=== PATIENT | female | born 1990 | race Caucasian/White ===

== ENCOUNTER 2018-04-14 13:24 | Emergency (ER) | payer OTHER, MEDICAID, SELFPAY ==
[2018-04-14 13:30] VITALS: BP 118/78; PULSE 63; RESP 20; TEMP 36.7; O2SAT 99
[2018-04-14] MEDS: SODIUM CHLORIDE 0.9% 1,000 ML 1000 ML IV ×2 (14:17→17:11)
[2018-04-14 14:55] LABS: Bacteria Urine None Seen; RBC Urine None Seen (0-5/HPF)
[2018-04-14 14:59] LABS: Hematocrit 39.3 % (36-46); Hemoglobin 13.5 g/dL (12.0-16.0); Mean Corpuscular HGB Conc 34.3 % (30-36); Mean Corpuscular Hemoglobin 29.4 PG (26-34); Mean Corpuscular Volume 85.7 fL (80-100); Platelet Count 317 X10^3/uL (150-400); Red Blood Cell Count 4.58 X10^6/uL (4.0-5.2); White Blood Cell Count 11.9 X10^3/uL (4.5-11.0)
[2018-04-14 15:04] LABS: Alanine Aminotransferase 55 IU/L (9-52); Albumin 4.3 g/dL (3.5-5.0); Albumin Globulin Ratio 1.3 (1.0-2.8); Alkaline Phosphatase 45 U/L (38-126); Aspartate Aminotransferase 48 IU/L (14-36); BUN Creatinine Ratio 15.7 (6-22); Bilirubin Total 0.8 mg/dL (0.2-1.3); Blood Urea Nitrogen 11 mg/dL (7-17); Calcium 8.9 mg/dL (8.4-10.2); Carbon Dioxide 24 mmol/L (22-32); Chloride 99 mmol/L (98-107); Estimated Glomerular Filt Rate > 60.0 mL/min (>60); Globulin 3.4 g/dL (1.7-4.1); Glucose 102 mg/dL (70-100); HEMOLYSIS < 15 (0-50); Magnesium 2.2 mg/dL (1.6-2.3); Potassium 3.1 mmol/L (3.4-5.1); Sodium 137 mmol/L (137-145); Total Protein 7.7 g/dL (6.3-8.2)
[2018-04-14 15:14] LABS: Neutrophils Absolute Manual 8330 /uL (3000-5900); RBC Morphology Normal Morphology; Total Cells Counted 100
[2018-04-14 15:15] LABS: Squamous Epithelial Cell Urine 1-5 /HPF; WBC Urine 1-5/HPF (0-5/HPF)
[2018-04-14 15:16] LABS: Amorphous Sediment Urine 2+; Culture Indicated Urine Cult Not Indicated
--- NOTE | 2018-04-14 15:26 | DI.US.S_ITS ---
PROCEDURE: US OB <= 14 WEEKS FETUS INDICATIONS: n/v back pain OUTSIDE/PRIOR DATING DATA: Last menstrual period (LMP): Unknown. LMP-based estimated date of delivery (LAKSHMI): Not available. First dating scan (date and location): 04/07/18, Dr. Borrego. Estimated date of delivery (LAKSHMI) from first dating scan: 11/10/18. TECHNIQUE: Real-time scanning was performed of the fetus and maternal pelvic organs, with image documentation. COMPARISON: [facility], , US OB <= 14 WEEKS FETUS, 04/07/2018, 13:51. FINDINGS: Embryo: There is a single live intrauterine gestation with a crown rump length of 3.5 cm for a gestational age of 10 weeks, 3 days. The heart rate is 175 bpm. This finding is concordant with the dates by initial ultrasound dated 04/07/18. Measurement variability in dating: +/- 4 weeks by LMP, +/- 7 days by mean sac diameter (use before 6 weeks gestation if crown-rump length not able to be measured), +/- 5 days by crown-rump length (up to 8 weeks 6 days gestation), +/- 7 days by crown-rump length (up to 13 weeks 6 days gestation). Maternal organs: Ovaries have a normal appearance. Limited images through the kidneys demonstrate no hydronephrosis. IMPRESSION: 1. Single live intrauterine gestation with a gestational age of 10 weeks, 3 days which is concordant with dates by initial scan. Dictated by: Sharri Ragland M.D. on 04/14/2018 at 17:43 Approved by: Sharri Ragland M.D. on 04/14/2018 at 17:45
[2018-04-14 15:41] VITALS: BP 121/81; PULSE 56; RESP 14; O2SAT 100
[2018-04-14 15:45] LABS: HCG Quantitative /Beta subunit 165450 mIU/mL
[2018-04-14] MEDS: POTASSIUM CHLORIDE 20 MEQ in SODIUM CHLORIDE 0.9% 250 ML 130 ML IV (16:04)
[2018-04-14] MEDS: ONDANSETRON 4 MG/2 ML INJ IV (16:04)
--- NOTE | 2018-04-14 17:00 | ED.NAVMDI ---
HPI - Nausea/Vomiting/Diarrhea <GEORGINA Sales - Last Filed: 04/14/18 23:18> General Chief complaint: Nausea/Vomiting/Diarrhea Stated complaint: THROWING UP SINCE FRIDAY,10 WEEKS Time Seen by Provider: 04/14/18 14:40 Source: patient Mode of arrival: ambulatory Limitations: no limitations History of Present Illness HPI Narrative: Patient is a 27-year-old female who is 10 weeks presents with profuse nausea and vomiting. She was seen at [facility] for the same thing on sending, was found to have low potassium. She states that her has been going well, but her nausea and vomiting is worse with this than previous. She denies any abdominal pain, fevers diarrhea or constipation. She states she tried both is [place] and Reglan at home, but that made her sick. She denies any chest pain or shortness of breath. She denies any dysuria urgency or frequency. She denies any vaginal bleeding or discharge. Related Data Home Medications Medication Instructions Recorded Confirmed PNV cmb#95-ferrous fumarate-FA 1 tab PO DAILY 04/14/18 04/14/18 [] metoclopramide HCl 1 tab PO PRN PRN 04/14/18 04/14/18 ondansetron 1 tab PO TID PRN 04/14/18 04/14/18 Previous Rx's Medication Instructions Recorded ondansetron HCl 4 mg PO TID-QID PRN #20 tab 04/14/18 Allergies Allergy/AdvReac Type Severity Reaction Status Date / Time No Known Drug Allergies Allergy Unverified 04/06/18 19:13 Review of Systems <GEORGINA Sales - Last Filed: 04/14/18 23:18> Review of Systems GENERAL: Denies chills, fatigue, malaise, fever, sweats. HEENT: Denies sinus pain, ear pain, sore throat, difficulty swallowing, dizziness. RESPIRATORY: Denies dyspnea, cough, wheezing, hemoptysis, sputum. CARDIOVASCULAR: Denies chest pain, palpitations, orthopnea, edema, GASTROINTESTINAL: See HPI : Denies dysuria, frequency, incontinence, hematuria, urinary retention. MUSCULOSKELETAL: denies weakness, joint pain, or bony pain SKIN: Denies rash, skin lesions, or other NEUROLOGIC: Denies weakness, headache, numbness, change in speech, confusion, seizures, incoordination. PSYCHIATRIC: No concerning psychosocial issues. 12 point review of systems is negative except for those stated above Exam <GEORGINA Sales - Last Filed: 04/14/18 23:18> Narrative Exam Narrative: GENERAL: This is a well-nourished, well-developed patient, lying on stretcher HEAD: Atraumatic. Normocephalic. No temporal or scalp tenderness. EYES: Pupils equal round and reactive. Extraocular motions intact. No scleral icterus. No injection or drainage. ENT: Nose without bleeding, purulent drainage or septal hematoma. Throat without erythema, tonsillar hypertrophy or exudate. Uvula midline. Airway patent. NECK: Trachea midline. No JVD or lymphadenopathy. Supple, nontender, no meningeal signs. CARDIOVASCULAR: Regular rate and rhythm without murmurs, gallops, or rubs. RESPIRATORY: Clear to auscultation. Breath sounds equal bilaterally. No wheezes, rales, or rhonchi. GASTROINTESTINAL: Abdomen soft, non-tender, nondistended. No hepato-splenomegaly, or palpable masses. No guarding. no pulsatile mass. Active bowel sounds all 4 quadrants. EXTREMITIES: No clubbing, cyanosis, or edema. No joint tenderness, effusion, or edema noted. BACK: Nontender without deformity or crepitance. No flank tenderness. NEURO: AOx3. SKIN: No rash or erythema. Initial Vital Signs Initial Vital Signs: Vital Signs Temperature 98.0 F 04/14/18 13:30 Pulse Rate 63 04/14/18 13:30 Respiratory Rate 20 04/14/18 13:30 Blood Pressure 118/78 04/14/18 13:30 Pulse Oximetry 99 04/14/18 13:30 <Lyndsay Contreras DO - Last Filed: 04/15/18 04:22> Initial Vital Signs Initial Vital Signs: Vital Signs Temperature 98.0 F 04/14/18 13:30 Pulse Rate 63 04/14/18 13:30 Respiratory Rate 20 04/14/18 13:30 Blood Pressure 118/78 04/14/18 13:30 Pulse Oximetry 99 04/14/18 13:30 Course <GEORGINA Sales - Last Filed: 04/14/18 23:18> Orders Ordered: Discontinued Medications Sodium Chloride (Normal Saline 0.9%) 1,000 mls @ 1,000 mls/hr IV BOLUS ONE Stop: 04/14/18 15:13 Last Infusion: 04/14/18 16:05 Dose: 100 mls/hr Admin: 04/14/18 14:17 Dose: 1,000 mls/hr Potassium Chloride 20 meq/ (Sodium Chloride) 260 mls @ 130 mls/hr IV NOW ONE Stop: 04/14/18 17:38 Last Admin: 04/14/18 16:04 Dose: 130 mls/hr Sodium Chloride (Normal Saline 0.9%) 1,000 mls @ 1,000 mls/hr IV BOLUS ONE Stop: 04/14/18 18:02 Last Admin: 04/14/18 17:11 Dose: 1,000 mls/hr Metoclopramide HCl (Reglan) 10 mg PO NOW ONE Stop: 04/14/18 16:58 Last Admin: 04/14/18 19:02 Dose: Not Given Metoclopramide HCl (Reglan) 10 mg IV NOW ONE Stop: 04/14/18 17:14 Last Admin: 04/14/18 17:17 Dose: 10 mg Ondansetron HCl (Zofran) 4 mg IV NOW ONE Stop: 04/14/18 15:40 Last Admin: 04/14/18 16:04 Dose: 4 mg Vital Signs - 8 hr 04/14/18 15:41 04/14/18 19:39 Pulse Rate 56 L 67 Respiratory Rate 14 16 Blood Pressure [Right Arm] 121/81 101/67 Pulse Oximetry 100 100 <Lyndsay Contreras DO - Last Filed: 04/15/18 04:22> Orders Ordered: Discontinued Medications Sodium Chloride (Normal Saline 0.9%) 1,000 mls @ 1,000 mls/hr IV BOLUS ONE Stop: 04/14/18 15:13 Last Infusion: 04/14/18 16:05 Dose: 100 mls/hr Admin: 04/14/18 14:17 Dose: 1,000 mls/hr Potassium Chloride 20 meq/ (Sodium Chloride) 260 mls @ 130 mls/hr IV NOW ONE Stop: 04/14/18 17:38 Last Admin: 04/14/18 16:04 Dose: 130 mls/hr Sodium Chloride (Normal Saline 0.9%) 1,000 mls @ 1,000 mls/hr IV BOLUS ONE Stop: 04/14/18 18:02 Last Admin: 04/14/18 17:11 Dose: 1,000 mls/hr Metoclopramide HCl (Reglan) 10 mg PO NOW ONE Stop: 04/14/18 16:58 Last Admin: 04/14/18 19:02 Dose: Not Given Metoclopramide HCl (Reglan) 10 mg IV NOW ONE Stop: 04/14/18 17:14 Last Admin: 04/14/18 17:17 Dose: 10 mg Ondansetron HCl (Zofran) 4 mg IV NOW ONE Stop: 04/14/18 15:40 Last Admin: 04/14/18 16:04 Dose: 4 mg Vital Signs - 8 hr 04/14/18 15:41 04/14/18 19:39 Pulse Rate 56 L 67 Respiratory Rate 14 16 Blood Pressure [Right Arm] 121/81 101/67 Pulse Oximetry 100 100 MDM - Nausea/Vomiting/Diarrhea <CHASIDY Sales- - Last Filed: 04/14/18 23:18> Lab Data Result diagrams: 04/14/18 14:05 04/14/18 14:05 Lab Results 04/14/18 04/14/18 04/14/18 Range/Units 14:05 14:05 14:05 WBC 11.9 H (4.5-11.0) X10^3/uL RBC 4.58 (4.0-5.2) X10^6/uL Hgb 13.5 (12.0-16.0) g/dL Hct 39.3 (36-46) % MCV 85.7 (80-100) fL MCH 29.4 (26-34) PG MCHC 34.3 (30-36) % RDW 13.0 (11.6-14.8) % Plt Count 317 (150-400) X10^3/uL Total Counted 100 Seg Neutrophils % 70.0 (38-70) % Lymphocytes % (Manual) 19.0 L (25-45) % Atypical Lymphs % 6.0 H ( - 0) % Monocytes % (Manual) 5.0 (2-11) % Neutrophils # (Manual) 8330 H (6997-7513) /uL RBC Morphology Normal morphology Sodium 137 (137-145) mmol/L Potassium 3.1 L (3.4-5.1) mmol/L Chloride 99 (98-107) mmol/L Carbon Dioxide 24 (22-32) mmol/L BUN 11 (7-17) mg/dL Creatinine 0.70 (0.52-1.04) mg/dL Estimated GFR > 60.0 (>60) mL/min BUN/Creatinine Ratio 15.7 (6-22) Glucose 102 H (70-100) mg/dL Calcium 8.9 (8.4-10.2) mg/dL Magnesium 2.2 (1.6-2.3) mg/dL Total Bilirubin 0.8 (0.2-1.3) mg/dL AST 48 H (14-36) IU/L ALT 55 H (9-52) IU/L Alkaline Phosphatase 45 (38-126) U/L Total Protein 7.7 (6.3-8.2) g/dL Albumin 4.3 (3.5-5.0) g/dL Globulin 3.4 (1.7-4.1) g/dL Albumin/Globulin Ratio 1.3 (1.0-2.8) HCG, Quant 627782 mIU/mL Urine RBC None seen (0-5/HPF) Urine WBC 1-5/hpf (0-5/HPF) Ur Squamous Epith Cells 1-5 /hpf Amorphous Sediment 2+ Urine Bacteria None seen (None) Ur Culture Indicated? Cult not indicated Micro UA Comment Not Reportable Influenza A & B (PCR) (Negative) 04/14/18 Range/Units 17:00 WBC (4.5-11.0) X10^3/uL RBC (4.0-5.2) X10^6/uL Hgb (12.0-16.0) g/dL Hct (36-46) % MCV (80-100) fL MCH (26-34) PG MCHC (30-36) % RDW (11.6-14.8) % Plt Count (150-400) X10^3/uL Total Counted Seg Neutrophils % (38-70) % Lymphocytes % (Manual) (25-45) % Atypical Lymphs % ( - 0) % Monocytes % (Manual) (2-11) % Neutrophils # (Manual) (8023-9710) /uL RBC Morphology Sodium (137-145) mmol/L Potassium (3.4-5.1) mmol/L Chloride (98-107) mmol/L Carbon Dioxide (22-32) mmol/L BUN (7-17) mg/dL Creatinine (0.52-1.04) mg/dL Estimated GFR (>60) mL/min BUN/Creatinine Ratio (6-22) Glucose (70-100) mg/dL Calcium (8.4-10.2) mg/dL Magnesium (1.6-2.3) mg/dL Total Bilirubin (0.2-1.3) mg/dL AST (14-36) IU/L ALT (9-52) IU/L Alkaline Phosphatase (38-126) U/L Total Protein (6.3-8.2) g/dL Albumin (3.5-5.0) g/dL Globulin (1.7-4.1) g/dL Albumin/Globulin Ratio (1.0-2.8) HCG, Quant mIU/mL Urine RBC (0-5/HPF) Urine WBC (0-5/HPF) Ur Squamous Epith Cells Amorphous Sediment Urine Bacteria (None) Ur Culture Indicated? Micro UA Comment Influenza A & B (PCR) Negative (Negative) Point of Care Testing Test Results Positive Urine Dip Bedside Urine Glucose Negative Bedside Urine Bilirubin - Negative Bedside Urine Ketone +++ 80 Urine Specific [place] 1.015 Bedside Urine Occult Blood - Negative Bedside Urine pH 7.0 Bedside Urine Protein + 30 Bedside Urine Urobilinogen +/- 1mg Bedside Urine Nitrite - Negative Bedside Urine Leukocytes - Negative Esterase Imaging Data US - abdomen: Radiologist's impression: 7 Diagnostics DATE TYPE STATUS AUTHOR 04/14/18 15:26 Sharri Ragland HerndonMeghann 27, F1990 DEP ER, ED - Main ED: R12 61.235kg Nausea/Vomiting/Diarrhea Search Chart No Known Drug Allergies ONSET 09/18/11 Today 19:[address] [address] Ultrasound Report Signed Patient: Meghann Herndon MMR#: [id number] : 1990Acct:[id number] Age/Sex: 27 / FDate of Service: 04/14/18 Loc: ED Accession Number: [id number] Procedure: US OB <= 14 weeks fetus Ordering Provider: Becki Underwood [employer]UN[employer] OPERATOR [employer] PROCEDURE: US OB <= 14 WEEKS FETUS INDICATIONS: n/v back pain OUTSIDE/PRIOR DATING DATA: Last menstrual period (LMP): Unknown. LMP-based estimated date of delivery (LAKSHMI): Not available. First dating scan (date and location): 04/07/18, Dr. Borrego. Estimated date of delivery (LAKSHMI) from first dating scan: 11/10/18. TECHNIQUE: Real-time scanning was performed of the fetus and maternal pelvic organs, with image documentation. COMPARISON: [facility], US, US OB <= 14 WEEKS FETUS, 04/07/2018, 13:51. FINDINGS: Embryo: There is a single live intrauterine gestation with a crown rump length of 3.5 cm for a gestational age of 10 weeks, 3 days. The heart rate is 175 bpm. This finding is concordant with the dates by initial ultrasound dated 04/07/18. Measurement variability in dating: +/- 4 weeks by LMP, +/- 7 days by mean sac diameter (use before 6 weeks gestation if crown-rump length not able to be measured), +/- 5 days by crown-rump length (up to 8 weeks 6 days gestation), +/- 7 days by crown-rump length (up to 13 weeks 6 days gestation). Maternal organs: Ovaries have a normal appearance. Limited images through the kidneys demonstrate no hydronephrosis. IMPRESSION: 1. Single live intrauterine gestation with a gestational age of 10 weeks, 3 days which is concordant with dates by initial scan. Dictated by: Sharri Ragland M.D. on 04/14/2018 at 17:43 Approved by: Sharri Ragland M.D. on 04/14/2018 at 17:45 MDM Narrative Medical decision making narrative: The patient is a 27-year-old female who presents with nausea and vomiting. She was seen at [facility] for the same thing 2 days ago. The patient was treated with normal saline, Zofran and Reglan in the emergency department. She was able to pass a p.o. trial Prior to discharge. Her potassium was found to be 3.1 so she was replaced with 20 mEq IV. the patient is hemodynamically stable, afebrile nontoxic throughout her stay in the emergency department. I discussed at length follow up with her primary care provider for potassium recheck as well as management of her nausea and vomiting throughout her . Ultrasound revealed no acute findings and urine was negative for infection. I discussed at length with patient return precautions and she had no questions or concerns upon discharge. <Lyndsay Ben, DO - Last Filed: 04/15/18 04:22> Lab Data Lab Results 04/14/18 04/14/18 04/14/18 Range/Units 14:05 14:05 14:05 WBC 11.9 H (4.5-11.0) X10^3/uL RBC 4.58 (4.0-5.2) X10^6/uL Hgb 13.5 (12.0-16.0) g/dL Hct 39.3 (36-46) % MCV 85.7 (80-100) fL MCH 29.4 (26-34) PG MCHC 34.3 (30-36) % RDW 13.0 (11.6-14.8) % Plt Count 317 (150-400) X10^3/uL Total Counted 100 Seg Neutrophils % 70.0 (38-70) % Lymphocytes % (Manual) 19.0 L (25-45) % Atypical Lymphs % 6.0 H ( - 0) % Monocytes % (Manual) 5.0 (2-11) % Neutrophils # (Manual) 8330 H (2597-2345) /uL RBC Morphology Normal morphology Sodium 137 (137-145) mmol/L Potassium 3.1 L (3.4-5.1) mmol/L Chloride 99 (98-107) mmol/L Carbon Dioxide 24 (22-32) mmol/L BUN 11 (7-17) mg/dL Creatinine 0.70 (0.52-1.04) mg/dL Estimated GFR > 60.0 (>60) mL/min BUN/Creatinine Ratio 15.7 (6-22) Glucose 102 H (70-100) mg/dL Calcium 8.9 (8.4-10.2) mg/dL Magnesium 2.2 (1.6-2.3) mg/dL Total Bilirubin 0.8 (0.2-1.3) mg/dL AST 48 H (14-36) IU/L ALT 55 H (9-52) IU/L Alkaline Phosphatase 45 (38-126) U/L Total Protein 7.7 (6.3-8.2) g/dL Albumin 4.3 (3.5-5.0) g/dL Globulin 3.4 (1.7-4.1) g/dL Albumin/Globulin Ratio 1.3 (1.0-2.8) HCG, Quant 627721 mIU/mL Urine RBC None seen (0-5/HPF) Urine WBC 1-5/hpf (0-5/HPF) Ur Squamous Epith Cells 1-5 /hpf Amorphous Sediment 2+ Urine Bacteria None seen (None) Ur Culture Indicated? Cult not indicated Micro UA Comment Not Reportable Influenza A & B (PCR) (Negative) 04/14/18 Range/Units 17:00 WBC (4.5-11.0) X10^3/uL RBC (4.0-5.2) X10^6/uL Hgb (12.0-16.0) g/dL Hct (36-46) % MCV (80-100) fL MCH (26-34) PG MCHC (30-36) % RDW (11.6-14.8) % Plt Count (150-400) X10^3/uL Total Counted Seg Neutrophils % (38-70) % Lymphocytes % (Manual) (25-45) % Atypical Lymphs % ( - 0) % Monocytes % (Manual) (2-11) % Neutrophils # (Manual) (3950-7921) /uL RBC Morphology Sodium (137-145) mmol/L Potassium (3.4-5.1) mmol/L Chloride (98-107) mmol/L Carbon Dioxide (22-32) mmol/L BUN (7-17) mg/dL Creatinine (0.52-1.04) mg/dL Estimated GFR (>60) mL/min BUN/Creatinine Ratio (6-22) Glucose (70-100) mg/dL Calcium (8.4-10.2) mg/dL Magnesium (1.6-2.3) mg/dL Total Bilirubin (0.2-1.3) mg/dL AST (14-36) IU/L ALT (9-52) IU/L Alkaline Phosphatase (38-126) U/L Total Protein (6.3-8.2) g/dL Albumin (3.5-5.0) g/dL Globulin (1.7-4.1) g/dL Albumin/Globulin Ratio (1.0-2.8) HCG, Quant mIU/mL Urine RBC (0-5/HPF) Urine WBC (0-5/HPF) Ur Squamous Epith Cells Amorphous Sediment Urine Bacteria (None) Ur Culture Indicated? Micro UA Comment Influenza A & B (PCR) Negative (Negative) Point of Care Testing Test Results Positive Urine Dip Bedside Urine Glucose Negative Bedside Urine Bilirubin - Negative Bedside Urine Ketone +++ 80 Urine Specific [place] 1.015 Bedside Urine Occult Blood - Negative Bedside Urine pH 7.0 Bedside Urine Protein + 30 Bedside Urine Urobilinogen +/- 1mg Bedside Urine Nitrite - Negative Bedside Urine Leukocytes - Negative Esterase Discharge Plan Departure Patient Disposition: Home Clinical Impression: Nausea and vomiting during , Acute hypokalemia Discharge Date/Time: 04/14/18 19:44 Interventions: ED Discharge Assessment Last Done: 04/14/18 19:43 Instructions: Nausea of (Alternative Therapy), Support (Alternative Therapy), DI for Hyperemesis Gravidarum, DI for Nausea -- Adult, DI for Vomiting -- Adult Activity Restrictions/Additional Instructions: Please follow-up with your primary care provider regarding her nausea and vomiting during . Please call them tomorrow. Your potassium was slightly low today, so we gave you some potassium replacement. Please continue to try the medication prescriptions that you have for nausea. I am giving a prescription of Zofran tablets rather than the dissolvable ones as those made you nauseous. Come back to the emergency department if you have any chest pain, shortness of breath, worried about passing out or unable to keep down fluids or ice. Prescriptions: New ondansetron HCl 4 mg tablet 4 mg PO TID-QID PRN (Reason: nausea and vomiting) Qty: 20 RF: 0 No Action ondansetron 4 mg tablet,disintegrating 1 tab PO TID PRN (Reason: Nausea) RF: 0 metoclopramide HCl 10 mg tablet 1 tab PO PRN PRN (Reason: Nausea) RF: 0 PNV cmb#95-ferrous fumarate-FA [] 28 mg iron- 800 mcg Tablet 1 tab PO DAILY RF: 0 Referrals: Philipp Borrego MD [Primary Care Provider] - <Lyndsay Contreras DO - Last Filed: 04/15/18 04:22> Cosign ED Attending Cosignature Attestation: I was immediately available in the department for consultation. Documentation has been reviewed. I agree with assessment and plan.
[2018-04-14] MEDS: METOCLOPRAMIDE 10 MG/2 ML INJ IV (17:17)
[2018-04-14 17:56] LABS: Influenza A and B by PCR Rapid Negative (Negative)
--- NOTE | 2018-04-14 19:20 | ED_ITS ---
HPI - Nausea/Vomiting/Diarrhea <GEORGINA Sales - Last Filed: 04/14/18 23:18> General Chief complaint: Nausea/Vomiting/Diarrhea Stated complaint: THROWING UP SINCE FRIDAY,10 WEEKS Time Seen by Provider: 04/14/18 14:40 Source: patient Mode of arrival: ambulatory Limitations: no limitations History of Present Illness HPI Narrative: Patient is a 27-year-old female who is 10 weeks presents with profuse nausea and vomiting. She was seen at [facility] for the same thing on sending, was found to have low potassium. She states that her has been going well, but her nausea and vomiting is worse with this than previous. She denies any abdominal pain, fevers diarrhea or constipation. She states she tried both is [place] and Reglan at home, but that made her sick. She denies any chest pain or shortness of breath. She denies any dysuria urgency or frequency. She denies any vaginal bleeding or discharge. Related Data Home Medications Medication Instructions Recorded Confirmed PNV cmb#95-ferrous fumarate-FA 1 tab PO DAILY 04/14/18 04/14/18 [] metoclopramide HCl 1 tab PO PRN PRN 04/14/18 04/14/18 ondansetron 1 tab PO TID PRN 04/14/18 04/14/18 Previous Rx's Medication Instructions Recorded ondansetron HCl 4 mg PO TID-QID PRN #20 tab 04/14/18 Allergies Allergy/AdvReac Type Severity Reaction Status Date / Time No Known Drug Allergies Allergy Unverified 04/06/18 19:13 Review of Systems <GEORGINA Sales - Last Filed: 04/14/18 23:18> Review of Systems GENERAL: Denies chills, fatigue, malaise, fever, sweats. HEENT: Denies sinus pain, ear pain, sore throat, difficulty swallowing, dizziness. RESPIRATORY: Denies dyspnea, cough, wheezing, hemoptysis, sputum. CARDIOVASCULAR: Denies chest pain, palpitations, orthopnea, edema, GASTROINTESTINAL: See HPI : Denies dysuria, frequency, incontinence, hematuria, urinary retention. MUSCULOSKELETAL: denies weakness, joint pain, or bony pain SKIN: Denies rash, skin lesions, or other NEUROLOGIC: Denies weakness, headache, numbness, change in speech, confusion, seizures, incoordination. PSYCHIATRIC: No concerning psychosocial issues. 12 point review of systems is negative except for those stated above Exam <GEORGINA Sales - Last Filed: 04/14/18 23:18> Narrative Exam Narrative: GENERAL: This is a well-nourished, well-developed patient, lying on stretcher HEAD: Atraumatic. Normocephalic. No temporal or scalp tenderness. EYES: Pupils equal round and reactive. Extraocular motions intact. No scleral icterus. No injection or drainage. ENT: Nose without bleeding, purulent drainage or septal hematoma. Throat without erythema, tonsillar hypertrophy or exudate. Uvula midline. Airway patent. NECK: Trachea midline. No JVD or lymphadenopathy. Supple, nontender, no meningeal signs. CARDIOVASCULAR: Regular rate and rhythm without murmurs, gallops, or rubs. RESPIRATORY: Clear to auscultation. Breath sounds equal bilaterally. No wheezes , rales, or rhonchi. GASTROINTESTINAL: Abdomen soft, non-tender, nondistended. No hepato-splenomegaly , or palpable masses. No guarding. no pulsatile mass. Active bowel sounds all 4 quadrants. EXTREMITIES: No clubbing, cyanosis, or edema. No joint tenderness, effusion, or edema noted. BACK: Nontender without deformity or crepitance. No flank tenderness. NEURO: AOx3. SKIN: No rash or erythema. Initial Vital Signs Initial Vital Signs: Vital Signs Temperature 98.0 F 04/14/18 13:30 Pulse Rate 63 04/14/18 13:30 Respiratory Rate 20 04/14/18 13:30 Blood Pressure 118/78 04/14/18 13:30 Pulse Oximetry 99 04/14/18 13:30 <Lyndsay Contreras DO - Last Filed: 04/15/18 04:22> Initial Vital Signs Initial Vital Signs: Vital Signs Temperature 98.0 F 04/14/18 13:30 Pulse Rate 63 04/14/18 13:30 Respiratory Rate 20 04/14/18 13:30 Blood Pressure 118/78 04/14/18 13:30 Pulse Oximetry 99 04/14/18 13:30 Course <GEORGINA Sales - Last Filed: 04/14/18 23:18> Orders Ordered: Discontinued Medications Sodium Chloride (Normal Saline 0.9%) 1,000 mls @ 1,000 mls/hr IV BOLUS ONE Stop: 04/14/18 15:13 Last Infusion: 04/14/18 16:05 Dose: 100 mls/hr Admin: 04/14/18 14:17 Dose: 1,000 mls/hr Potassium Chloride 20 meq/ (Sodium Chloride) 260 mls @ 130 mls/hr IV NOW ONE Stop: 04/14/18 17:38 Last Admin: 04/14/18 16:04 Dose: 130 mls/hr Sodium Chloride (Normal Saline 0.9%) 1,000 mls @ 1,000 mls/hr IV BOLUS ONE Stop: 04/14/18 18:02 Last Admin: 04/14/18 17:11 Dose: 1,000 mls/hr Metoclopramide HCl (Reglan) 10 mg PO NOW ONE Stop: 04/14/18 16:58 Last Admin: 04/14/18 19:02 Dose: Not Given Metoclopramide HCl (Reglan) 10 mg IV NOW ONE Stop: 04/14/18 17:14 Last Admin: 04/14/18 17:17 Dose: 10 mg Ondansetron HCl (Zofran) 4 mg IV NOW ONE Stop: 04/14/18 15:40 Last Admin: 04/14/18 16:04 Dose: 4 mg Vital Signs - 8 hr 04/14/18 15:41 04/14/18 19:39 Pulse Rate 56 L 67 Respiratory Rate 14 16 Blood Pressure [Right Arm] 121/81 101/67 Pulse Oximetry 100 100 <Lyndsay Contreras DO - Last Filed: 04/15/18 04:22> Orders Ordered: Discontinued Medications Sodium Chloride (Normal Saline 0.9%) 1,000 mls @ 1,000 mls/hr IV BOLUS ONE Stop: 04/14/18 15:13 Last Infusion: 04/14/18 16:05 Dose: 100 mls/hr Admin: 04/14/18 14:17 Dose: 1,000 mls/hr Potassium Chloride 20 meq/ (Sodium Chloride) 260 mls @ 130 mls/hr IV NOW ONE Stop: 04/14/18 17:38 Last Admin: 04/14/18 16:04 Dose: 130 mls/hr Sodium Chloride (Normal Saline 0.9%) 1,000 mls @ 1,000 mls/hr IV BOLUS ONE Stop: 04/14/18 18:02 Last Admin: 04/14/18 17:11 Dose: 1,000 mls/hr Metoclopramide HCl (Reglan) 10 mg PO NOW ONE Stop: 04/14/18 16:58 Last Admin: 04/14/18 19:02 Dose: Not Given Metoclopramide HCl (Reglan) 10 mg IV NOW ONE Stop: 04/14/18 17:14 Last Admin: 04/14/18 17:17 Dose: 10 mg Ondansetron HCl (Zofran) 4 mg IV NOW ONE Stop: 04/14/18 15:40 Last Admin: 04/14/18 16:04 Dose: 4 mg Vital Signs - 8 hr 04/14/18 15:41 04/14/18 19:39 Pulse Rate 56 L 67 Respiratory Rate 14 16 Blood Pressure [Right Arm] 121/81 101/67 Pulse Oximetry 100 100 MDM - Nausea/Vomiting/Diarrhea <CHASIDY Sales- - Last Filed: 04/14/18 23:18> Lab Data Result diagrams: 04/14/18 14:05 04/14/18 14:05 Lab Results 04/14/18 04/14/18 04/14/18 Range/Units 14:05 14:05 14:05 WBC 11.9 H (4.5-11.0) X10^3/uL RBC 4.58 (4.0-5.2) X10^6/uL Hgb 13.5 (12.0-16.0) g/dL Hct 39.3 (36-46) % MCV 85.7 (80-100) fL MCH 29.4 (26-34) PG MCHC 34.3 (30-36) % RDW 13.0 (11.6-14.8) % Plt Count 317 (150-400) X10^3/uL Total Counted 100 Seg Neutrophils % 70.0 (38-70) % Lymphocytes % (Manual) 19.0 L (25-45) % Atypical Lymphs % 6.0 H ( - 0) % Monocytes % (Manual) 5.0 (2-11) % Neutrophils # (Manual) 8330 H (1450-0317) /uL RBC Morphology Normal morphology Sodium 137 (137-145) mmol/L Potassium 3.1 L (3.4-5.1) mmol/L Chloride 99 (98-107) mmol/L Carbon Dioxide 24 (22-32) mmol/L BUN 11 (7-17) mg/dL Creatinine 0.70 (0.52-1.04) mg/dL Estimated GFR > 60.0 (>60) mL/min BUN/Creatinine Ratio 15.7 (6-22) Glucose 102 H (70-100) mg/dL Calcium 8.9 (8.4-10.2) mg/dL Magnesium 2.2 (1.6-2.3) mg/dL Total Bilirubin 0.8 (0.2-1.3) mg/dL AST 48 H (14-36) IU/L ALT 55 H (9-52) IU/L Alkaline Phosphatase 45 (38-126) U/L Total Protein 7.7 (6.3-8.2) g/dL Albumin 4.3 (3.5-5.0) g/dL Globulin 3.4 (1.7-4.1) g/dL Albumin/Globulin Ratio 1.3 (1.0-2.8) HCG, Quant 277004 mIU/mL Urine RBC None seen (0-5/HPF) Urine WBC 1-5/hpf (0-5/HPF) Ur Squamous Epith Cells 1-5 /hpf Amorphous Sediment 2+ Urine Bacteria None seen (None) Ur Culture Indicated? Cult not indicated Micro UA Comment Not Reportable Influenza A & B (PCR) (Negative) 04/14/18 Range/Units 17:00 WBC (4.5-11.0) X10^3/uL RBC (4.0-5.2) X10^6/uL Hgb (12.0-16.0) g/dL Hct (36-46) % MCV (80-100) fL MCH (26-34) PG MCHC (30-36) % RDW (11.6-14.8) % Plt Count (150-400) X10^3/uL Total Counted Seg Neutrophils % (38-70) % Lymphocytes % (Manual) (25-45) % Atypical Lymphs % ( - 0) % Monocytes % (Manual) (2-11) % Neutrophils # (Manual) (9682-0270) /uL RBC Morphology Sodium (137-145) mmol/L Potassium (3.4-5.1) mmol/L Chloride (98-107) mmol/L Carbon Dioxide (22-32) mmol/L BUN (7-17) mg/dL Creatinine (0.52-1.04) mg/dL Estimated GFR (>60) mL/min BUN/Creatinine Ratio (6-22) Glucose (70-100) mg/dL Calcium (8.4-10.2) mg/dL Magnesium (1.6-2.3) mg/dL Total Bilirubin (0.2-1.3) mg/dL AST (14-36) IU/L ALT (9-52) IU/L Alkaline Phosphatase (38-126) U/L Total Protein (6.3-8.2) g/dL Albumin (3.5-5.0) g/dL Globulin (1.7-4.1) g/dL Albumin/Globulin Ratio (1.0-2.8) HCG, Quant mIU/mL Urine RBC (0-5/HPF) Urine WBC (0-5/HPF) Ur Squamous Epith Cells Amorphous Sediment Urine Bacteria (None) Ur Culture Indicated? Micro UA Comment Influenza A & B (PCR) Negative (Negative) Point of Care Testing Test Results Positive Urine Dip Bedside Urine Glucose Negative Bedside Urine Bilirubin - Negative Bedside Urine Ketone +++ 80 Urine Specific Piercy 1.015 Bedside Urine Occult Blood - Negative Bedside Urine pH 7.0 Bedside Urine Protein + 30 Bedside Urine Urobilinogen +/- 1mg Bedside Urine Nitrite - Negative Bedside Urine Leukocytes - Negative Esterase Imaging Data US - abdomen: Radiologist's impression: 7 Diagnostics DATE TYPE STATUS AUTHOR 04/14/18 15:26 Sharri Ragland HerndonMeghann 27, F1990 DEP ER, ED - Main ED: R12 61.235kg Nausea/Vomiting/Diarrhea Search Chart No Known Drug Allergies ONSET 09/18/11 Today 19:[address] [address] Ultrasound Report Signed Patient: Meghann Herndon MMR#: [id number] : 1990Acct:[id number] Age/Sex: 27 / FDate of Service: 04/14/18 Loc: ED Accession Number: [id number] Procedure: US OB <= 14 weeks fetus Ordering Provider: Becki Underwood YARN EXAMINER-BC PROCEDURE: US OB <= 14 WEEKS FETUS INDICATIONS: n/v back pain OUTSIDE/PRIOR DATING DATA: Last menstrual period (LMP): Unknown. LMP-based estimated date of delivery (LAKSHMI): Not available. First dating scan (date and location): 04/07/18, Dr. Borrego. Estimated date of delivery (LAKSHMI) from first dating scan: 11/10/18. TECHNIQUE: Real-time scanning was performed of the fetus and maternal pelvic organs, with image documentation. COMPARISON: [facility], US, US OB <= 14 WEEKS FETUS, 04/07/2018 , 13:51. FINDINGS: Embryo: There is a single live intrauterine gestation with a crown rump length of 3.5 cm for a gestational age of 10 weeks, 3 days. The heart rate is 175 bpm. This finding is concordant with the dates by initial ultrasound dated 04/07/18. Measurement variability in dating: +/- 4 weeks by LMP, +/- 7 days by mean sac diameter (use before 6 weeks gestation if crown-rump length not able to be measured), +/ - 5 days by crown-rump length (up to 8 weeks 6 days gestation), +/- 7 days by crown-rump length (up to 13 weeks 6 days gestation). Maternal organs: Ovaries have a normal appearance. Limited images through the kidneys demonstrate no hydronephrosis. IMPRESSION: 1. Single live intrauterine gestation with a gestational age of 10 weeks, 3 days which is concordant with dates by initial scan. Dictated by: Sharri Ragland M.D. on 04/14/2018 at 17:43 Approved by: Sharri Ragland M.D. on 04/14/2018 at 17:45 MDM Narrative Medical decision making narrative: The patient is a 27-year-old female who presents with nausea and vomiting. She was seen at [facility] for the same thing 2 days ago. The patient was treated with normal saline, Zofran and Reglan in the emergency department. She was able to pass a p.o. trial Prior to discharge. Her potassium was found to be 3.1 so she was replaced with 20 mEq IV. the patient is hemodynamically stable, afebrile nontoxic throughout her stay in the emergency department. I discussed at length follow up with her primary care provider for potassium recheck as well as management of her nausea and vomiting throughout her . Ultrasound revealed no acute findings and urine was negative for infection. I discussed at length with patient return precautions and she had no questions or concerns upon discharge. <Lyndsay Ben, DO - Last Filed: 04/15/18 04:22> Lab Data Lab Results 04/14/18 04/14/18 04/14/18 Range/Units 14:05 14:05 14:05 WBC 11.9 H (4.5-11.0) X10^3/uL RBC 4.58 (4.0-5.2) X10^6/uL Hgb 13.5 (12.0-16.0) g/dL Hct 39.3 (36-46) % MCV 85.7 (80-100) fL MCH 29.4 (26-34) PG MCHC 34.3 (30-36) % RDW 13.0 (11.6-14.8) % Plt Count 317 (150-400) X10^3/uL Total Counted 100 Seg Neutrophils % 70.0 (38-70) % Lymphocytes % (Manual) 19.0 L (25-45) % Atypical Lymphs % 6.0 H ( - 0) % Monocytes % (Manual) 5.0 (2-11) % Neutrophils # (Manual) 8330 H (8992-7234) /uL RBC Morphology Normal morphology Sodium 137 (137-145) mmol/L Potassium 3.1 L (3.4-5.1) mmol/L Chloride 99 (98-107) mmol/L Carbon Dioxide 24 (22-32) mmol/L BUN 11 (7-17) mg/dL Creatinine 0.70 (0.52-1.04) mg/dL Estimated GFR > 60.0 (>60) mL/min BUN/Creatinine Ratio 15.7 (6-22) Glucose 102 H (70-100) mg/dL Calcium 8.9 (8.4-10.2) mg/dL Magnesium 2.2 (1.6-2.3) mg/dL Total Bilirubin 0.8 (0.2-1.3) mg/dL AST 48 H (14-36) IU/L ALT 55 H (9-52) IU/L Alkaline Phosphatase 45 (38-126) U/L Total Protein 7.7 (6.3-8.2) g/dL Albumin 4.3 (3.5-5.0) g/dL Globulin 3.4 (1.7-4.1) g/dL Albumin/Globulin Ratio 1.3 (1.0-2.8) HCG, Quant 469180 mIU/mL Urine RBC None seen (0-5/HPF) Urine WBC 1-5/hpf (0-5/HPF) Ur Squamous Epith Cells 1-5 /hpf Amorphous Sediment 2+ Urine Bacteria None seen (None) Ur Culture Indicated? Cult not indicated Micro UA Comment Not Reportable Influenza A & B (PCR) (Negative) 04/14/18 Range/Units 17:00 WBC (4.5-11.0) X10^3/uL RBC (4.0-5.2) X10^6/uL Hgb (12.0-16.0) g/dL Hct (36-46) % MCV (80-100) fL MCH (26-34) PG MCHC (30-36) % RDW (11.6-14.8) % Plt Count (150-400) X10^3/uL Total Counted Seg Neutrophils % (38-70) % Lymphocytes % (Manual) (25-45) % Atypical Lymphs % ( - 0) % Monocytes % (Manual) (2-11) % Neutrophils # (Manual) (1757-1549) /uL RBC Morphology Sodium (137-145) mmol/L Potassium (3.4-5.1) mmol/L Chloride (98-107) mmol/L Carbon Dioxide (22-32) mmol/L BUN (7-17) mg/dL Creatinine (0.52-1.04) mg/dL Estimated GFR (>60) mL/min BUN/Creatinine Ratio (6-22) Glucose (70-100) mg/dL Calcium (8.4-10.2) mg/dL Magnesium (1.6-2.3) mg/dL Total Bilirubin (0.2-1.3) mg/dL AST (14-36) IU/L ALT (9-52) IU/L Alkaline Phosphatase (38-126) U/L Total Protein (6.3-8.2) g/dL Albumin (3.5-5.0) g/dL Globulin (1.7-4.1) g/dL Albumin/Globulin Ratio (1.0-2.8) HCG, Quant mIU/mL Urine RBC (0-5/HPF) Urine WBC (0-5/HPF) Ur Squamous Epith Cells Amorphous Sediment Urine Bacteria (None) Ur Culture Indicated? Micro UA Comment Influenza A & B (PCR) Negative (Negative) Point of Care Testing Test Results Positive Urine Dip Bedside Urine Glucose Negative Bedside Urine Bilirubin - Negative Bedside Urine Ketone +++ 80 Urine Specific [place]cy 1.015 Bedside Urine Occult Blood - Negative Bedside Urine pH 7.0 Bedside Urine Protein + 30 Bedside Urine Urobilinogen +/- 1mg Bedside Urine Nitrite - Negative Bedside Urine Leukocytes - Negative Esterase Discharge Plan Departure Patient Disposition: Home Clinical Impression: Nausea and vomiting during , Acute hypokalemia Discharge Date/Time: 04/14/18 19:44 Interventions: ED Discharge Assessment Last Done: 04/14/18 19:43 Instructions: Nausea of (Alternative Therapy), Support ( Alternative Therapy), DI for Hyperemesis Gravidarum, DI for Nausea -- Adult, DI for Vomiting -- Adult Activity Restrictions/Additional Instructions: Please follow-up with your primary care provider regarding her nausea and vomiting during . Please call them tomorrow. Your potassium was slightly low today, so we gave you some potassium replacement. Please continue to try the medication prescriptions that you have for nausea. I am giving a prescription of Zofran tablets rather than the dissolvable ones as those made you nauseous. Come back to the emergency department if you have any chest pain, shortness of breath, worried about passing out or unable to keep down fluids or ice. Prescriptions: New ondansetron HCl 4 mg tablet 4 mg PO TID-QID PRN (Reason: nausea and vomiting) Qty: 20 RF: 0 No Action ondansetron 4 mg tablet,disintegrating 1 tab PO TID PRN (Reason: Nausea) RF: 0 metoclopramide HCl 10 mg tablet 1 tab PO PRN PRN (Reason: Nausea) RF: 0 PNV cmb#95-ferrous fumarate-FA [] 28 mg iron- 800 mcg Tablet 1 tab PO DAILY RF: 0 Referrals: Philipp Borrego MD [Primary Care Provider] - <Lyndsay Contreras DO - Last Filed: 04/15/18 04:22> Cosign ED Attending Cosignature Attestation: I was immediately available in the department for consultation. Documentation has been reviewed. I agree with assessment and plan.
[2018-04-14 19:39] VITALS: BP 101/67; PULSE 67; RESP 16; O2SAT 100
--- NOTE | 2018-04-20 12:00 | PC.NURSE ---
late entry: Potassium infusion started at 1604. End 1810, 260 cc infused. No ill effect. NS 1000 cc started at 1711, completed 1810, 1000 cc infused. No ill effect.
== END 2018-04-14 19:44 | disposition home or self-care (01) ==
PROVIDERS: Emergency Provider Nurse Practitioner Family; PCP Family Medicine
DX: O21.9 Vomiting of pregnancy, unspecified (principal); O26.891 Other specified pregnancy related conditions, first trimester; E87.6 Hypokalemia; Z3A.10 10 weeks gestation of pregnancy
CPT/HCPCS: 36591; 76801; 80053; 81003; 81015; 81025; 83735; 84702; 85025; 87400; 96361; 96365; 96366; 96375; 99283; 99284; J2405; J2765; J3480

== ENCOUNTER 2018-05-13 20:52 | Emergency (ER) | payer OTHER, MEDICAID, SELFPAY ==
[2018-05-13 20:54] VITALS: PULSE 69; RESP 20; TEMP 36.4; O2SAT 99; BMI 24.9
[2018-05-13] MEDS: SODIUM CHLORIDE 0.9% 1,000 ML 1000 ML IV ×2 (22:27→23:37)
[2018-05-13] MEDS: ONDANSETRON 4 MG/2 ML INJ IV (22:27)
[2018-05-13 22:32] VITALS: BP 133/78; PULSE 57; RESP 12; O2SAT 98
[2018-05-13 22:42] LABS: Add Manual Diff / Slide Review NO; Basophils Percent Auto 0.1 % (0-2); Hematocrit 38.1 % (36-46); Hemoglobin 13.2 g/dL (12.0-16.0); Lymphocytes Percent Auto 4.8 % (25-40); Mean Corpuscular HGB Conc 34.6 % (30-36); Mean Corpuscular Volume 86.5 fL (80-100); Monocytes Percent Auto 1.3 % (3-14); Neutrophils Absolute Auto 15300 /uL (3000-5900); Neutrophils Percent Auto 93.8 % (50-75); Platelet Count 338 X10^3/uL (150-400); Red Cell Distribution Width 13.7 % (11.6-14.8); White Blood Cell Count 16.4 X10^3/uL (4.5-11.0)
[2018-05-13 22:43] LABS: Prothrombin Time 11.2 SECONDS (10.1-12.7)
--- NOTE | 2018-05-13 22:44 | ED.ABDPAIN ---
HPI - Abdominal Pain General Chief Complaint: Abdominal Pain Stated Complaint: 13 WEEKS , VOMITING Time Seen by Provider: 05/13/18 22:38 Source: patient Mode of arrival: ambulatory Limitations: no limitations History of Present Illness HPI narrative: patient is a at approximately 13 weeks EGA here for evaluation of nausea and vomiting. She states that she has had nausea vomiting throughout her . She has oral Zofran at home provided by her OB provider. She states that over the past 24 hr she has had more nausea and vomiting in the Zofran was not helping. No cramping. No loss of fluid. No vaginal bleeding. patient also states that she has a history emesis secondary to marijuana use. She states she did smoke some marijuana to try to help with the nausea. Related Data Home Medications Medication Instructions Recorded Confirmed PNV cmb#95-ferrous fumarate-FA 1 tab PO DAILY 04/14/18 04/14/18 [] metoclopramide HCl 1 tab PO PRN PRN 04/14/18 04/14/18 Previous Rx's Medication Instructions Recorded ondansetron HCl 4 mg tablet 4 mg PO TID-QID PRN #20 tab 05/13/18 promethazine 25 mg PO Q4-6H PRN #14 tab 05/14/18 Allergies Allergy/AdvReac Type Severity Reaction Status Date / Time No Known Drug Allergies Allergy Unverified 04/06/18 19:13 Review of Systems Constitutional Denies fever(s) and Denies headache(s) ENT Ears, Nose, Mouth, and Throat: Denies headache(s) Cardiovascular Denies chest pain and Denies dyspnea Respiratory Denies dyspnea Gastrointestinal Gastrointestinal: Reports abdominal pain, Denies constipation, Denies cramping, Reports nausea and Reports vomiting Genitourinary Denies dysuria, Denies pelvic pain and Denies vaginal discharge Musculoskeletal Denies myalgias and Denies arthralgias Integumentary/Breasts Denies rash Neurologic Denies headache(s) Hematologic/Lymphatic Comments: Not on anticoagulation PFSH Medical History Healthy adult (Acute) Surgical History No pertinent past surgical history (Acute) Social History Smoking Status: Current every day smoker Exam Initial Vital Signs Initial Vital Signs: Vital Signs Temperature 97.5 F L 05/13/18 20:54 Pulse Rate 69 05/13/18 20:54 Respiratory Rate 20 05/13/18 20:54 Pulse Oximetry 99 05/13/18 20:54 Const General: cooperative, healthy appearing, comfortable, well developed, well groomed and No acute distress Orientation: alert, awake and oriented x3 HENMT Head: normal to inspection and normocephalic Resp Effort & Inspection: normal respiratory effort Cardio Rate: regular rate Rhythm: regular rhythm GI Inspection: non-distended Palpation: soft and No firm Skin Lesions: no lesions Rashes: no rashes Neuro General: alert, awake and oriented x3 Extrem General: normal to inspection and capillary refill normal Psych Appearance: grossly normal and well kempt Course Orders Ordered: ED Orders 05/13/18 20:53 EKG-12 Lead Stat 05/13/18 22:32 Beta HCG, Quant [HCG Quantitative] Stat Complete Blood Count AUTO DIFF Stat Comprehensive Metabolic Panel Stat Lipase Stat Partial Thromboplastin Time Stat Prothrombin Time INR Stat Discontinued Medications Sodium Chloride (Normal Saline 0.9%) 1,000 mls @ 1,000 mls/hr IV BOLUS ONE Stop: 05/13/18 23:17 Last Infusion: 05/13/18 23:34 Dose: 0 mls/hr Admin: 05/13/18 22:27 Dose: 1,000 mls/hr Sodium Chloride (Normal Saline 0.9%) 1,000 mls @ 1,000 mls/hr IV BOLUS ONE Stop: 05/14/18 00:08 Last Infusion: 05/14/18 00:36 Dose: 0 mls/hr Admin: 05/13/18 23:37 Dose: 1,000 mls/hr Ondansetron HCl (Zofran) 4 mg IV NOW ONE Stop: 05/13/18 22:19 Last Admin: 05/13/18 22:27 Dose: 4 mg Vital Signs - 8 hr 05/13/18 20:54 05/13/18 22:32 05/13/18 23:35 Temperature 97.5 F L Pulse Rate 69 57 L 64 Respiratory Rate 20 12 18 Blood Pressure Blood Pressure [Left Arm] 133/78 133/69 Pulse Oximetry 99 98 05/14/18 00:46 Temperature Pulse Rate 60 Respiratory Rate 18 Blood Pressure 121/76 Blood Pressure [Left Arm] Pulse Oximetry 98 MDM - Abdominal Pain Lab Data Attestation: I reviewed the patient's lab results. Result diagrams: 05/13/18 22:32 05/13/18 22:32 Lab Results 05/13/18 05/13/18 05/13/18 Range/Units 22:32 22:32 22:32 WBC 16.4 H (4.5-11.0) X10^3/uL RBC 4.40 (4.0-5.2) X10^6/uL Hgb 13.2 (12.0-16.0) g/dL Hct 38.1 (36-46) % MCV 86.5 (80-100) fL MCH 30.0 (26-34) PG MCHC 34.6 (30-36) % RDW 13.7 (11.6-14.8) % Plt Count 338 (150-400) X10^3/uL Neut % (Auto) 93.8 H (50-75) % Lymph % (Auto) 4.8 L (25-40) % [place] % (Auto) 1.3 L (3-14) % Eos % (Auto) 0.0 L (2-4) % Baso % (Auto) 0.1 (0-2) % Neut # (Auto) 71231 H (9178-3224) /uL PT 11.2 (10.1-12.7) SECONDS INR 1.0 (0.9-1.3) APTT 23 L (26.4-36.2) SECONDS Sodium 140 (137-145) mmol/L Potassium 3.7 (3.4-5.1) mmol/L Chloride 104 (98-107) mmol/L Carbon Dioxide 20 L (22-32) mmol/L BUN 11 (7-17) mg/dL Creatinine 0.70 (0.52-1.04) mg/dL Estimated GFR > 60.0 (>60) mL/min BUN/Creatinine Ratio 15.7 (6-22) Glucose 154 H (70-100) mg/dL Calcium 9.5 (8.4-10.2) mg/dL Total Bilirubin 0.4 (0.2-1.3) mg/dL AST 20 (14-36) IU/L ALT 12 (9-52) IU/L Alkaline Phosphatase 52 (38-126) U/L Total Protein 8.2 (6.3-8.2) g/dL Albumin 4.6 (3.5-5.0) g/dL Globulin 3.6 (1.7-4.1) g/dL Albumin/Globulin Ratio 1.3 (1.0-2.8) Lipase 88 (23-300) U/L HCG, Quant mIU/mL 05/13/18 Range/Units 22:32 WBC (4.5-11.0) X10^3/uL RBC (4.0-5.2) X10^6/uL Hgb (12.0-16.0) g/dL Hct (36-46) % MCV (80-100) fL MCH (26-34) PG MCHC (30-36) % RDW (11.6-14.8) % Plt Count (150-400) X10^3/uL Neut % (Auto) (50-75) % Lymph % (Auto) (25-40) % [place] % (Auto) (3-14) % Eos % (Auto) (2-4) % Baso % (Auto) (0-2) % Neut # (Auto) (6486-1308) /uL PT (10.1-12.7) SECONDS INR (0.9-1.3) APTT (26.4-36.2) SECONDS Sodium (137-145) mmol/L Potassium (3.4-5.1) mmol/L Chloride (98-107) mmol/L Carbon Dioxide (22-32) mmol/L BUN (7-17) mg/dL Creatinine (0.52-1.04) mg/dL Estimated GFR (>60) mL/min BUN/Creatinine Ratio (6-22) Glucose (70-100) mg/dL Calcium (8.4-10.2) mg/dL Total Bilirubin (0.2-1.3) mg/dL AST (14-36) IU/L ALT (9-52) IU/L Alkaline Phosphatase (38-126) U/L Total Protein (6.3-8.2) g/dL Albumin (3.5-5.0) g/dL Globulin (1.7-4.1) g/dL Albumin/Globulin Ratio (1.0-2.8) Lipase (23-300) U/L HCG, Quant 57283 mIU/mL Point of care testing: Urine Dip Bedside Urine Glucose Negative Bedside Urine Bilirubin - Negative Bedside Urine Ketone +++ 80 Urine Specific [place] 1.050 Bedside Urine Occult Blood - Negative Bedside Urine pH 8.5 Bedside Urine Protein +/- 15 Bedside Urine Urobilinogen - Negative Bedside Urine Nitrite - Negative Bedside Urine Leukocytes - Negative Esterase MDM Narrative Medical decision making narrative: Patient denies any vaginal bleeding or urinary symptoms. She does have ketones in her urine however no other signs of infection. She was given 2 L of fluid here in the emergency department which did improve her symptoms. She was tolerating oral intake. Has a benign abdominal exam. Does have an elevated white blood cell count however no signs of an infection. This could be demargination secondary to her extensive vomiting. She does have Zofran at home. Will send home with a prescription for Phenergan. She was instructed she needed to contact her primary care doctor. She was given return precautions. She expressed understanding and agreement plan Discharge Plan Departure Patient Disposition: Home Clinical Impression: Nausea and vomiting during Discharge Date/Time: 05/14/18 00:47 Interventions: ED Discharge Assessment Last Done: 05/14/18 00:46 Instructions: DI for Vomiting -- Adult Activity Restrictions/Additional Instructions: recommend that you drink small amounts of fluid over longer periods of time. Take the anti nausea medication as directed. Call your OB provider for a follow-up. Return to the emergency department for any new symptoms. Prescriptions: New promethazine 25 mg tablet 25 mg PO Q4-6H PRN (Reason: nausea and vomiting) Qty: 14 RF: 0 No Action ondansetron HCl 4 mg tablet 4 mg PO TID-QID PRN (Reason: nausea and vomiting) Qty: 20 RF: 0 metoclopramide HCl 10 mg tablet 1 tab PO PRN PRN (Reason: Nausea) RF: 0 PNV cmb#95-ferrous fumarate-FA [] 28 mg iron- 800 mcg Tablet 1 tab PO DAILY RF: 0
[2018-05-13 22:46] LABS: PTT Partial Thromboplastin Tim 23 SECONDS (26.4-36.2)
[2018-05-13 22:48] LABS: Alanine Aminotransferase 12 IU/L (9-52); Albumin 4.6 g/dL (3.5-5.0); Albumin Globulin Ratio 1.3 (1.0-2.8); Alkaline Phosphatase 52 U/L (38-126); Aspartate Aminotransferase 20 IU/L (14-36); BUN Creatinine Ratio 15.7 (6-22); Bilirubin Total 0.4 mg/dL (0.2-1.3); Blood Urea Nitrogen 11 mg/dL (7-17); Calcium 9.5 mg/dL (8.4-10.2); Carbon Dioxide 20 mmol/L (22-32); Chloride 104 mmol/L (98-107); Estimated Glomerular Filt Rate > 60.0 mL/min (>60); Globulin 3.6 g/dL (1.7-4.1); Glucose 154 mg/dL (70-100); HEMOLYSIS < 15 (0-50); Lipase 88 U/L (23-300); Potassium 3.7 mmol/L (3.4-5.1); Sodium 140 mmol/L (137-145); Total Protein 8.2 g/dL (6.3-8.2)
[2018-05-13 23:27] LABS: HCG Quantitative /Beta subunit 60316 mIU/mL
[2018-05-13 23:35] VITALS: BP 133/69; PULSE 64; RESP 18
[2018-05-14 00:46] VITALS: BP 121/76; PULSE 60; RESP 18; O2SAT 98
== END 2018-05-14 00:47 | disposition home or self-care (01) ==
PROVIDERS: Emergency Provider Emergency Medicine; PCP Family Medicine
DX: O21.9 Vomiting of pregnancy, unspecified (principal); Z3A.13 13 weeks gestation of pregnancy
CPT/HCPCS: 36591; 80053; 81003; 83690; 84702; 85025; 85610; 85730; 96361; 96374; 99283; 99284; J2405

== ENCOUNTER 2018-05-15 17:05 | Emergency (ER) | payer OTHER, MEDICAID, SELFPAY ==
[2018-05-15 17:10] VITALS: BP 133/78; PULSE 75; RESP 15; TEMP 36.9; O2SAT 98; BMI 24.0
[2018-05-15] MEDS: ONDANSETRON 4 MG/2 ML INJ IV (18:55)
[2018-05-15 19:16] LABS: Add Manual Diff / Slide Review NO; Basophils Percent Auto 0.8 % (0-2); Eosinophils Percent Auto 0.1 % (2-4); Hematocrit 41.8 % (36-46); Hemoglobin 14.4 g/dL (12.0-16.0); Lymphocytes Percent Auto 14.5 % (25-40); Mean Corpuscular HGB Conc 34.5 % (30-36); Mean Corpuscular Volume 86.9 fL (80-100); Monocytes Percent Auto 4.7 % (3-14); Neutrophils Absolute Auto 10900 /uL (3000-5900); Neutrophils Percent Auto 79.9 % (50-75); Platelet Count 356 X10^3/uL (150-400); Red Blood Cell Count 4.81 X10^6/uL (4.0-5.2); Red Cell Distribution Width 13.3 % (11.6-14.8); White Blood Cell Count 13.6 X10^3/uL (4.5-11.0)
[2018-05-15 19:19] LABS: Alanine Aminotransferase 23 IU/L (9-52); Albumin 4.9 g/dL (3.5-5.0); Albumin Globulin Ratio 1.3 (1.0-2.8); Alkaline Phosphatase 50 U/L (38-126); Aspartate Aminotransferase 24 IU/L (14-36); BUN Creatinine Ratio 11.4 (6-22); Bilirubin Total 0.7 mg/dL (0.2-1.3); Blood Urea Nitrogen 8 mg/dL (7-17); Calcium 9.4 mg/dL (8.4-10.2); Carbon Dioxide 23 mmol/L (22-32); Chloride 99 mmol/L (98-107); Estimated Glomerular Filt Rate > 60.0 mL/min (>60); Globulin 3.8 g/dL (1.7-4.1); Glucose 107 mg/dL (70-100); HEMOLYSIS < 15 (0-50); Potassium 3.3 mmol/L (3.4-5.1); Sodium 137 mmol/L (137-145); Total Protein 8.7 g/dL (6.3-8.2)
[2018-05-15 20:00] VITALS: BP 130/81; O2SAT 99
[2018-05-15] MEDS: SODIUM CHLORIDE 0.9% 1,000 ML 1000 ML IV (20:10)
--- NOTE | 2018-05-15 20:17 | PC.NURSE ---
heart tones found by Kandice CASEY from D using doppler. heart rate 157 bpm
--- NOTE | 2018-05-15 20:20 | PC.NURSE ---
pt reports return visit for hyperemesis related to . She states she was given zofran and fennergrin here a few days ago and it did not help. States she started vomiting once she got back to the car and hasnt stopped since.
[2018-05-15 20:45] VITALS: BP 127/71; PULSE 77; O2SAT 100
--- NOTE | 2018-05-15 20:57 | ED_ITS ---
HPI - Nausea/Vomiting/Diarrhea <FLOR Joshi - Last Filed: 05/15/18 22:31> General Chief complaint: Nausea/Vomiting/Diarrhea Stated complaint: THROWING UP,HEART HURTS Time Seen by Provider: 05/15/18 20:02 Source: patient Mode of arrival: ambulatory Limitations: no limitations History of Present Illness HPI Narrative: 27-year-old healthy female that is a everyday smoker she is 4 para 3 currently about 13 weeks with diagnosis of hyperemesis gravidarum. She is currently being treated home with Phenergan and also Zofran. She reports that she is still having nausea vomiting. Last emesis was at arrival time. Her PRODUCT MANAGEMENT MANAGER is Dr. Borrego. She denies any vaginal discharge or bleeding. She denies any abdominal pain. No urinary symptoms. She denies any fevers or chills. She states she had brief period where she had some mild chest pain while she was taking a shower earlier today the pain went away fairly quickly and then did not return. No shortness of breath No other concerns or complaints. Related Data Home Medications Medication Instructions Recorded Confirmed PNV cmb#95-ferrous fumarate-FA 1 tab PO DAILY 04/14/18 04/14/18 [] metoclopramide HCl 1 tab PO PRN PRN 04/14/18 04/14/18 Previous Rx's Medication Instructions Recorded ondansetron HCl 4 mg tablet 4 mg PO TID-QID PRN #20 tab 05/13/18 promethazine 25 mg PO Q4-6H PRN #14 tab 05/14/18 Allergies Allergy/AdvReac Type Severity Reaction Status Date / Time No Known Drug Allergies Allergy Verified 05/15/18 17:10 Review of Systems <FLOR Joshi - Last Filed: 05/15/18 22:31> Eyes Denies change in vision, Denies eye discharge, Denies irritation and Denies loss of vision ENT Ears, Nose, Mouth, and Throat: Denies change in voice, Denies neck pain and Denies sore throat Cardiovascular Reports chest pain, Denies irregular heart rhythm, Denies lightheadedness, Denies palpitations, Denies dyspnea, Denies dyspnea on exertion and Denies orthopnea Respiratory Denies cough, Denies dyspnea, Denies dyspnea on exertion and Denies wheezing Gastrointestinal Gastrointestinal: Reports vomiting Genitourinary Denies hematuria, Denies flank pain, Denies urinary incontinence and Denies urinary urgency Musculoskeletal Denies neck pain Integumentary/Breasts Denies pruritus, Denies erythema, Denies rash and Denies wounds Neurologic Denies confusion and Denies loss of vision Psychiatric Denies anxiety, Denies confusion, Denies depression, Denies homicidal ideation and Denies suicidal ideation Endocrine Denies palpitations Hematologic/Lymphatic Denies easy bruising Allergic/Immunologic Denies wheezing Exam <FLOR Joshi - Last Filed: 05/15/18 22:31> Initial Vital Signs Initial Vital Signs: Vital Signs Temperature 98.4 F 05/15/18 17:10 Pulse Rate 75 05/15/18 17:10 Respiratory Rate 15 05/15/18 17:10 Blood Pressure 133/78 05/15/18 17:10 Pulse Oximetry 98 05/15/18 17:10 Const General: cooperative and well developed Nutritional Appearance: well nourished Orientation: alert, awake, oriented x3 and not confused HENTN Mouth: oral mucosae normal, oropharynx normal and moist mucous membranes Eyes Conjunctivae: conjunctivae normal Sclera: sclerae normal Pupils: PERRL EOM: EOM intact bilaterally Cardio Rate: regular rate Rhythm: regular rhythm Heart Sounds: no click, no gallops, no murmurs and no rubs Pulses: normal peripheral pulses GI Inspection: non-distended Palpation: soft, no hepatosplenomegaly, No guarding, No pulsatile mass and No tender Auscultation: normal bowel sounds General: No CVA tenderness Skin General: no rashes or lesions noted, No jaundice and No petechiae Neuro General: alert, oriented x3, gait normal and no focal motor deficits Speech: speech normal <Lyndsay Contreras DO - Last Filed: 05/16/18 03:16> Initial Vital Signs Initial Vital Signs: Vital Signs Temperature 98.4 F 05/15/18 17:10 Pulse Rate 75 05/15/18 17:10 Respiratory Rate 15 05/15/18 17:10 Blood Pressure 133/78 05/15/18 17:10 Pulse Oximetry 98 05/15/18 17:10 Course <FLOR Joshi - Last Filed: 05/15/18 22:31> Orders Ordered: ED Orders 05/15/18 18:50 Complete Blood Count AUTO DIFF Stat Comprehensive Metabolic Panel Stat Troponin I Stat 05/15/18 20:48 EKG-12 Lead Stat 05/15/18 21:10 Urine Microscopic Stat Discontinued Medications Sodium Chloride (Normal Saline 0.9%) 1,000 mls @ 1,000 mls/hr IV BOLUS ONE Stop: 05/15/18 19:18 Last Infusion: 05/15/18 21:45 Dose: 0 mls/hr Admin: 05/15/18 20:10 Dose: 1,000 mls/hr Ondansetron HCl (Zofran) 4 mg IV NOW ONE Stop: 05/15/18 18:20 Last Admin: 05/15/18 18:55 Dose: 4 mg Potassium Chloride (Potassium Chloride) 20 meq PO NOW ONE Stop: 05/15/18 21:33 Last Admin: 05/15/18 21:44 Dose: 20 meq Vital Signs - 8 hr 05/15/18 20:00 05/15/18 20:45 05/15/18 21:00 Pulse Rate 77 83 Respiratory Rate Blood Pressure Blood Pressure [Left Arm] 130/81 127/71 143/89 H Pulse Oximetry 99 100 100 05/15/18 22:22 Pulse Rate 78 Respiratory Rate 15 Blood Pressure 131/88 Blood Pressure [Left Arm] Pulse Oximetry 100 <Lyndsay Contreras, - Last Filed: 05/16/18 03:16> Orders Ordered: ED Orders 05/15/18 18:50 Complete Blood Count AUTO DIFF Stat Comprehensive Metabolic Panel Stat Troponin I Stat 05/15/18 20:48 EKG-12 Lead Stat 05/15/18 21:10 Urine Microscopic Stat Discontinued Medications Sodium Chloride (Normal Saline 0.9%) 1,000 mls @ 1,000 mls/hr IV BOLUS ONE Stop: 05/15/18 19:18 Last Infusion: 05/15/18 21:45 Dose: 0 mls/hr Admin: 05/15/18 20:10 Dose: 1,000 mls/hr Ondansetron HCl (Zofran) 4 mg IV NOW ONE Stop: 05/15/18 18:20 Last Admin: 05/15/18 18:55 Dose: 4 mg Potassium Chloride (Potassium Chloride) 20 meq PO NOW ONE Stop: 05/15/18 21:33 Last Admin: 05/15/18 21:44 Dose: 20 meq Vital Signs - 8 hr 05/15/18 20:00 05/15/18 20:45 05/15/18 21:00 Pulse Rate 77 83 Respiratory Rate Blood Pressure Blood Pressure [Left Arm] 130/81 127/71 143/89 H Pulse Oximetry 99 100 100 05/15/18 22:22 Pulse Rate 78 Respiratory Rate 15 Blood Pressure 131/88 Blood Pressure [Left Arm] Pulse Oximetry 100 MDM - Nausea/Vomiting/Diarrhea <FLOR Joshi - Last Filed: 05/15/18 22:31> Lab Data Result diagrams: 05/15/18 18:50 05/15/18 18:50 Lab Results 05/15/18 05/15/18 05/15/18 Range/Units 18:50 18:50 21:10 WBC 13.6 H (4.5-11.0) X10^3/uL RBC 4.81 (4.0-5.2) X10^6/uL Hgb 14.4 (12.0-16.0) g/dL Hct 41.8 (36-46) % MCV 86.9 (80-100) fL MCH 30.0 (26-34) PG MCHC 34.5 (30-36) % RDW 13.3 (11.6-14.8) % Plt Count 356 (150-400) X10^3/uL Neut % (Auto) 79.9 H (50-75) % Lymph % (Auto) 14.5 L (25-40) % Hand % (Auto) 4.7 (3-14) % Eos % (Auto) 0.1 L (2-4) % Baso % (Auto) 0.8 (0-2) % Neut # (Auto) 73768 H (2693-2905) /uL Sodium 137 (137-145) mmol/L Potassium 3.3 L (3.4-5.1) mmol/L Chloride 99 (98-107) mmol/L Carbon Dioxide 23 (22-32) mmol/L BUN 8 (7-17) mg/dL Creatinine 0.70 (0.52-1.04) mg/dL Estimated GFR > 60.0 (>60) mL/min BUN/Creatinine Ratio 11.4 (6-22) Glucose 107 H (70-100) mg/dL Calcium 9.4 (8.4-10.2) mg/dL Total Bilirubin 0.7 (0.2-1.3) mg/dL AST 24 (14-36) IU/L ALT 23 (9-52) IU/L Alkaline Phosphatase 50 (38-126) U/L Troponin I < 0.012 (0.01-0.034) ng/mL Total Protein 8.7 H (6.3-8.2) g/dL Albumin 4.9 (3.5-5.0) g/dL Globulin 3.8 (1.7-4.1) g/dL Albumin/Globulin Ratio 1.3 (1.0-2.8) Urine RBC 0-1/hpf (0-5/HPF) Urine WBC 0-1/hpf (0-5/HPF) Ur Squamous Epith Cells 5-10 /hpf H Urine Bacteria Few (2-10) H (None) Urine Mucus 1+ H (Negative) Ur Culture Indicated? Cult not indicated Micro UA Comment Not Reportable Urine Dip Bedside Urine Glucose Negative Bedside Urine Bilirubin - Negative Bedside Urine Ketone +++ 80 Urine Specific [place] 1.015 Bedside Urine Occult Blood - Negative Bedside Urine pH 7.0 Bedside Urine Protein +/- 15 Bedside Urine Urobilinogen +/- 1mg Bedside Urine Nitrite - Negative Bedside Urine Leukocytes - Negative Esterase ECG Data Interpretation: EKG shows normal sinus rhythm with no ST elevation or depression. No ectopy. Ventricular rate is 75. Pr interval of 149. QRS duration 93. QTC 437. MDM Narrative Medical decision making narrative: signs and symptoms presents as exacerbation of hyperemesis gravidarum. She was given Zofran in the emergency room and some fluids. She had no episodes of vomiting after her 1st episode when she 1st arrived. CBC was obtained shows elevated white count of 13.6. Chem panel shows potassium of 3.3. She was given 20 mEq of potassium in the emergency room orally. EKG shows sinus rhythm with no ST elevation or depression. Cardiac enzymes were obtained were negative. Suspect that her brief episode of chest pain was secondary to the vomiting. urinalysis was negative for urinary tract infection. Labs are otherwise unremarkable. discussed case with Dr. Bartholomew who is on for [facility] and she states that to have her continue taking her medications as prescribed and to follow up with OBGYN clinic on Friday. And they will try to get her into the infusion clinic for future treatments of her hyperemesis gravidarum. For any worsening symptoms week and return to the emergency room. <Lyndsay Ben, DO - Last Filed: 05/16/18 03:16> Lab Data Lab Results 05/15/18 05/15/18 05/15/18 Range/Units 18:50 18:50 21:10 WBC 13.6 H (4.5-11.0) X10^3/uL RBC 4.81 (4.0-5.2) X10^6/uL Hgb 14.4 (12.0-16.0) g/dL Hct 41.8 (36-46) % MCV 86.9 (80-100) fL MCH 30.0 (26-34) PG MCHC 34.5 (30-36) % RDW 13.3 (11.6-14.8) % Plt Count 356 (150-400) X10^3/uL Neut % (Auto) 79.9 H (50-75) % Lymph % (Auto) 14.5 L (25-40) % Hand % (Auto) 4.7 (3-14) % Eos % (Auto) 0.1 L (2-4) % Baso % (Auto) 0.8 (0-2) % Neut # (Auto) 45174 H (9722-3330) /uL Sodium 137 (137-145) mmol/L Potassium 3.3 L (3.4-5.1) mmol/L Chloride 99 (98-107) mmol/L Carbon Dioxide 23 (22-32) mmol/L BUN 8 (7-17) mg/dL Creatinine 0.70 (0.52-1.04) mg/dL Estimated GFR > 60.0 (>60) mL/min BUN/Creatinine Ratio 11.4 (6-22) Glucose 107 H (70-100) mg/dL Calcium 9.4 (8.4-10.2) mg/dL Total Bilirubin 0.7 (0.2-1.3) mg/dL AST 24 (14-36) IU/L ALT 23 (9-52) IU/L Alkaline Phosphatase 50 (38-126) U/L Troponin I < 0.012 (0.01-0.034) ng/mL Total Protein 8.7 H (6.3-8.2) g/dL Albumin 4.9 (3.5-5.0) g/dL Globulin 3.8 (1.7-4.1) g/dL Albumin/Globulin Ratio 1.3 (1.0-2.8) Urine RBC 0-1/hpf (0-5/HPF) Urine WBC 0-1/hpf (0-5/HPF) Ur Squamous Epith Cells 5-10 /hpf H Urine Bacteria Few (2-10) H (None) Urine Mucus 1+ H (Negative) Ur Culture Indicated? Cult not indicated Micro UA Comment Not Reportable Urine Dip Bedside Urine Glucose Negative Bedside Urine Bilirubin - Negative Bedside Urine Ketone +++ 80 Urine Specific [place] 1.015 Bedside Urine Occult Blood - Negative Bedside Urine pH 7.0 Bedside Urine Protein +/- 15 Bedside Urine Urobilinogen +/- 1mg Bedside Urine Nitrite - Negative Bedside Urine Leukocytes - Negative Esterase Discharge Plan Departure Patient Disposition: Home Clinical Impression: Hyperemesis gravidarum Discharge Date/Time: 05/15/18 22:24 Interventions: ED Discharge Assessment Last Done: 05/15/18 22:22 Instructions: DI for Hyperemesis Gravidarum Activity Restrictions/Additional Instructions: signs and symptoms presents as symptoms secondary to hyperemesis gravidarum. Continue taking medications as prescribed 4 year nausea and vomiting. Here given fluids in the emergency room. Vital signs are stable. Laboratory results were unremarkable today. Follow up with toolroom helper on Friday. They will try to get you into infusion clinic for treatment of your hyperemesis gravidarum. For any worsening symptoms return to the emergency room. Prescriptions: No Action ondansetron HCl 4 mg tablet 4 mg PO TID-QID PRN (Reason: nausea and vomiting) Qty: 20 RF: 0 metoclopramide HCl 10 mg tablet 1 tab PO PRN PRN (Reason: Nausea) RF: 0 PNV cmb#95-ferrous fumarate-FA [] 28 mg iron- 800 mcg Tablet 1 tab PO DAILY RF: 0 promethazine 25 mg tablet 25 mg PO Q4-6H PRN (Reason: nausea and vomiting) Qty: 14 RF: 0 Referrals: Philipp Borrego MD [Primary Care Provider] - <Lyndsay Contreras DO - Last Filed: 05/16/18 03:16> Cosign ED Attending Cosignature Attestation: I was immediately available in the department for consultation. Documentation has been reviewed. I agree with assessment and plan.
[2018-05-15 21:00] VITALS: BP 143/89; PULSE 83; O2SAT 100
[2018-05-15 21:27] LABS: Bacteria Urine Few (2-10); Mucus Urine 1+ (Negative); RBC Urine 0-1/HPF (0-5/HPF); Squamous Epithelial Cell Urine 5-10 /HPF; WBC Urine 0-1/HPF (0-5/HPF)
[2018-05-15 21:28] LABS: Culture Indicated Urine Cult Not Indicated
[2018-05-15 21:31] LABS: Troponin I < 0.012 ng/mL (0.01-0.034)
[2018-05-15] MEDS: POTASSIUM CHLORIDE 20 MEQ/15 ML UDC PO (21:44)
[2018-05-15 22:22] VITALS: BP 131/88; PULSE 78; RESP 15; O2SAT 100
== END 2018-05-15 22:24 | disposition home or self-care (01) ==
PROVIDERS: Emergency Medicine; Emergency Provider Nurse Practitioner Family; PCP Family Medicine
DX: O21.0 Mild hyperemesis gravidarum (principal); Z3A.13 13 weeks gestation of pregnancy
CPT/HCPCS: 36591; 80053; 81003; 81015; 84484; 85025; 93005; 96361; 96374; 99283; 99284; J2405

== ENCOUNTER → 2018-06-12 14:30 | Oncology outpatient (ONC) | payer OTHER, MEDICAID, SELFPAY ==
[2018-05-29] MEDS: SODIUM CHLORIDE 0.9% 1,000 ML 1000 ML IV (13:21)
[2018-05-29] MEDS: ONDANSETRON 4 MG/2 ML INJ IV (13:22)
[2018-05-29 13:41] VITALS: BP 101/54; PULSE 73; RESP 18; TEMP 36.8
--- NOTE | 2018-05-29 14:28 | PC.NURSE ---
Pt seen in clinic for IV fluids. Denies chest pain and SOB. Reports improved nausea with IV zofrana and fluids. RR equal and unlabored. Denies numbness and tingling to all extremities. No s/s of acute distress noted.
[2018-06-02] MEDS: SODIUM CHLORIDE 0.9% 1,000 ML 1000 ML IV ×2 (15:00→16:29)
[2018-06-02] MEDS: ONDANSETRON 4 MG/2 ML INJ IV (15:01)
--- NOTE | 2018-06-12 15:49 | PC.NURSE ---
Patient here on time. Due to busy shift longer wait period, then difficult iv access. She rwequested to leave for appt in [place] and will return for fluids next week.
[2018-06-12 16:05] VITALS: BP 129/55; PULSE 64; RESP 16; TEMP 36.8; O2SAT 99
== END ==
PROVIDERS: PCP Family Medicine; Visit Provider Family Medicine
DX: O21.0 Mild hyperemesis gravidarum (principal)
CPT/HCPCS: 96360; 96361; 96374; 96375; J2405

== ENCOUNTER → 2018-06-15 13:41 | Outpatient (CLI) | payer OTHER, MEDICAID, SELFPAY ==
--- NOTE | 2018-06-15 13:42 | DI.US.S_ITS ---
PROCEDURE: US OB >= 14 WEEKS FETUS INDICATIONS: ANATOMIC SURVEY OUTSIDE/PRIOR DATING DATA: Last menstrual period (LMP): Not available. LMP-based estimated date of delivery (LAKSHMI): Not applicable. First dating scan (date and location): 04/07/18. Estimated date of delivery (LAKSHMI) from first dating scan: 11/10/18. TECHNIQUE: Real-time scanning was performed of the fetus, with image documentation and biometric measurements. Endovaginal scanning: None COMPARISON: None. FINDINGS: General: A single living intrauterine gestation is present. Presentation: Vertex Placenta: Placental position is posterior, without previa Amniotic fluid index: 13.4 cm, normal range is 5-24 cm. heart rate: 155 beats per minute. Maternal cervical canal: 3.9 cm long. Normal lower limit is 2.5 cm. biometrics: Biparietal diameter: 4.6 cm, 19 weeks 6 days Head circumference: 17.3 cm, 19 weeks 6 days Abdominal circumference: 14.1 cm, 19 weeks 3 days Femur length: 3.2 cm, 19 weeks 6 days Estimated gestational age from initial scan: 18 weeks 6 days. Composite gestational age from present scan: 19 weeks 5 days Estimated weight and percentile: 306 g, 89% Measurement variability for biometric dating: +/- 7 days from 14 weeks to 15 weeks 6 days gestation, +/- 10 days from 16 weeks to 21 weeks 6 days gestation, +/- 2 weeks from 22 weeks to 27 weeks 6 days gestation, +/- 3 weeks for 28 weeks gestation or later. weight reference: 4500 g or EFW >90/95% is considered macrosomia or large for gestational age. EFW <10% is small for gestational age. EFW 5% or less is considered intra-uterine growth restriction. Anatomic survey: Neuro: Ventricles are non-dilated at less than 10 mm. Cisterna magna is normal at 3-11 mm. Cerebellum is normal in size and morphology. Nuchal skin fold: Normal at less than 6 mm between 14-21 weeks gestational age. Face: Nose and lips, facial profile are normal. Spine: No evidence for spina bifida. Heart: 4-chambered heart is present, with normal ventricular outflow tracts. 1 mm echogenic focus is seen in left ventricle. Diaphragm: Diaphragm is intact. Stomach: Left-sided stomach is present. Kidneys: No hydronephrosis. Normal is less than 5 mm in 2nd trimester, less than 7 mm in 3rd trimester. Cord: 3-vessel cord has orthotopic insertion. Bladder: Normal in size. Extremities: All 4 extremities identified. IMPRESSION: 1. Single live intrauterine with fetus in vertex presentation. heart rate is 155 beats per minute. Normal growth. 2. Tiny echogenic focus in left ventricle. Sonographic followup is recommended. Dictated by: Bismark Broderick M.D. on 06/15/2018 at 16:03 Approved by: Bismark Broderick M.D. on 06/15/2018 at 16:07
[2018-06-22 23:31] LABS: AFP, Serum 52.1 ng/mL; Calc Gestational Age 18.9; Cigarette Smoker NOT GIVEN; Donated Egg NOT GIVEN; Donor Egg Age NOT GIVEN; Estriol, Free 1.23 ng/mL; Inhibin A, Dimeric 298 pg/mL; Maternal Ethnicity NOT GIVEN; Maternal Weight 152 lbs; Number of Fetuses NOT GIVEN; Previous Pregnancy Down Syndro NOT GIVEN; hCG, Serum 20.6 IU/mL
== END ==
PROVIDERS: PCP Family Medicine; Visit Provider Family Medicine
DX: Z34.82 Encounter for supervision of other normal pregnancy, second trimester (principal); Z3A.19 19 weeks gestation of pregnancy
CPT/HCPCS: 36415; 76811; 82105; 82677; 84702; 86336

== ENCOUNTER → 2018-07-31 13:46 | Outpatient (CLI) | payer OTHER, MEDICAID, SELFPAY ==
[2018-07-31 15:06] LABS: Hematocrit 34.9 % (36-46); Hemoglobin 11.8 g/dL (12.0-16.0)
[2018-07-31 15:16] LABS: GTT (PREG) 1 Hour PP 50gm Dose 110 mg/dL (76-139)
== END ==
PROVIDERS: PCP Family Medicine; Visit Provider Family Medicine
DX: Z34.02 Encounter for supervision of normal first pregnancy, second trimester (principal); Z3A.24 24 weeks gestation of pregnancy
CPT/HCPCS: 36415; 82950; 85014; 85018

== ENCOUNTER 2018-08-07 12:25 | Emergency (ER) | payer OTHER, MEDICAID, SELFPAY ==
[2018-08-07 12:32] VITALS: BP 130/76; PULSE 87; RESP 18; TEMP 36.7; O2SAT 96
--- NOTE | 2018-08-07 13:31 | PC.NURSE ---
Patient dx with HG, 6months . Has history of migraines. started three days ago no relief with tylenol and unable to keep down prescribed anti nausea meds at home. Patient light sensitve and states this feels like a typical migraine. Unable to keep much down orally. Has vomited approx 10x today. Normal BM this morning.
[2018-08-07] MEDS: ONDANSETRON 4 MG/2 ML INJ IV (13:34)
[2018-08-07] MEDS: SODIUM CHLORIDE 0.9% 1,000 ML 1000 ML IV (13:34)
--- NOTE | 2018-08-07 13:34 | ED_ITS ---
HPI - Nausea/Vomiting/Diarrhea <Earlene Winchester PA-C - Last Filed: 08/07/18 17:34> General Chief complaint: Nausea/Vomiting/Diarrhea Stated complaint: six month preg,HG,can't keep anything down 48 hr Time Seen by Provider: 08/07/18 13:11 Source: patient Mode of arrival: ambulatory Limitations: no limitations History of Present Illness HPI Narrative: this 27-year-old female who is 6 months along in her 4th comes in due to nausea and vomiting that started on Friday in the setting of migraine headache, generalized, with light sensitivity. she also has hyperemesis gravidarum with this . she states that this feels like a typical migraine. She thinks that she has probably vomited 10 times today. She has photophobia as usual with her migraines, and states that once her headache starts she typically cannot stop vomiting on her own. She states that in the past migraine medicines have not worked for this and she usually needs to come here and get fluids and antiemetics. she states her abdomen is sore with vomiting today otherwise none, though had some lower abdominal soreness last night and her vomit seemed darker than today. She had a normal bowel movement today. She denies any new urinary symptoms, fever, chest pain, dyspnea or other new or unusual complaints. Related Data Home Medications Medication Instructions Recorded Confirmed PNV cmb#95-ferrous fumarate-FA 1 tab PO DAILY 04/14/18 08/07/18 [] Previous Rx's Medication Instructions Recorded promethazine 25 mg PO Q4-6H PRN #14 tab 05/14/18 ondansetron HCl 4 mg tablet 4 mg PO TID-QID PRN #30 tab 07/15/18 Allergies Allergy/AdvReac Type Severity Reaction Status Date / Time No Known Drug Allergies Allergy Verified 08/07/18 12:34 Review of Systems <Earlene Winchester PA-C - Last Filed: 08/07/18 17:34> Review of Systems ROS Unobtainable: All systems reviewed & are unremarkable except as noted in HPI and below PFSH <Earlene Winchester PA-C - Last Filed: 08/07/18 17:34> Medical History Hyperemesis gravidarum (Acute) Healthy adult (Chronic) Migraine headache (Chronic) Surgical History No pertinent past surgical history (Chronic) Social History Smoking Status: Current every day smoker Social History Smoking Status: Current every day smoker Exam <Earlene Winchester PA-C - Last Filed: 08/07/18 17:34> Narrative Exam Narrative: GENERAL APPEARANCE: Patient sitting comfortably, in no distress. HEENT: PERRL, EOMI, no scleral icterus NECK: Supple LUNGS: Clear to auscultation bilaterally. HEART: Rate and rhythm regular, normal S1 and S2, no S3 or S4. ABDOMEN: Soft, nondistended, bowel sounds present x 4 quadrants, no masses palpable. minimal tenderness from umbilicus distal over the midline and just to right of midline. No right lateral lower quadrant tenderness, suprapubic tenderness, or CVAT EXTREMITIES: No edema, no cyanosis DERMATOLOGIC: No jaundice or exanthem NEUROLOGIC: Alert and oriented with normal speech and coordination Initial Vital Signs Initial Vital Signs: Vital Signs Temperature 98.0 F 08/07/18 12:32 Pulse Rate 87 08/07/18 12:32 Respiratory Rate 18 08/07/18 12:32 Blood Pressure 130/76 08/07/18 12:32 Pulse Oximetry 96 08/07/18 12:32 <Lyndsay Contreras DO - Last Filed: 08/08/18 07:49> Initial Vital Signs Initial Vital Signs: Vital Signs Temperature 98.0 F 08/07/18 12:32 Pulse Rate 87 08/07/18 12:32 Respiratory Rate 18 08/07/18 12:32 Blood Pressure 130/76 08/07/18 12:32 Pulse Oximetry 96 08/07/18 12:32 Course <Earlene Winchester PA-C - Last Filed: 08/07/18 17:34> Additional Information: Patient reported feeling well prior to discharge. She had not had any recurrent vomiting after medications and had fallen asleep after Fioricet reporting significant improvement in pain. Advised not to drive and she agreed to have someone drive her home prior to us administering medications. At the time of discharge she reported feeling well and wanting to drive home, however we advised her to obtain a ride Orders Ordered: Discontinued Medications Acetaminophen/Butalbital/Caffeine (Fioricet) 1 each PO NOW ONE Stop: 08/07/18 15:24 Last Admin: 08/07/18 15:58 Dose: 1 each Sodium Chloride (Normal Saline 0.9%) 1,000 mls @ 1,000 mls/hr IV BOLUS ONE Stop: 08/07/18 14:29 Last Infusion: 08/07/18 14:41 Dose: 0 mls/hr Admin: 08/07/18 13:34 Dose: 1,000 mls/hr Metoclopramide HCl (Reglan) 10 mg IV NOW ONE Stop: 08/07/18 15:24 Last Admin: 08/07/18 15:32 Dose: 10 mg Ondansetron HCl (Zofran) 4 mg IV NOW ONE Stop: 08/07/18 13:31 Last Admin: 08/07/18 13:34 Dose: 4 mg Vital Signs - 8 hr 08/07/18 12:32 08/07/18 16:45 Temperature 98.0 F Pulse Rate 87 88 Respiratory Rate 18 12 Blood Pressure 130/76 Blood Pressure [Left Arm] 110/62 Pulse Oximetry 96 100 <Lyndsay Contreras, DO - Last Filed: 08/08/18 07:49> Orders Ordered: Discontinued Medications Acetaminophen/Butalbital/Caffeine (Fioricet) 1 each PO NOW ONE Stop: 08/07/18 15:24 Last Admin: 08/07/18 15:58 Dose: 1 each Sodium Chloride (Normal Saline 0.9%) 1,000 mls @ 1,000 mls/hr IV BOLUS ONE Stop: 08/07/18 14:29 Last Infusion: 08/07/18 14:41 Dose: 0 mls/hr Admin: 08/07/18 13:34 Dose: 1,000 mls/hr Metoclopramide HCl (Reglan) 10 mg IV NOW ONE Stop: 08/07/18 15:24 Last Admin: 08/07/18 15:32 Dose: 10 mg Ondansetron HCl (Zofran) 4 mg IV NOW ONE Stop: 08/07/18 13:31 Last Admin: 08/07/18 13:34 Dose: 4 mg Vital Signs - 8 hr 08/07/18 12:32 08/07/18 16:45 Temperature 98.0 F Pulse Rate 87 88 Respiratory Rate 18 12 Blood Pressure 130/76 Blood Pressure [Left Arm] 110/62 Pulse Oximetry 96 100 MDM - Nausea/Vomiting/Diarrhea <Earlene Winchester PA-C - Last Filed: 08/07/18 17:34> Lab Data Result diagrams: 08/07/18 13:20 08/07/18 13:20 Lab Results 08/07/18 08/07/18 08/07/18 Range/Units 13:20 13:20 13:53 WBC 15.4 H (4.5-11.0) X10^3/uL RBC 3.93 L (4.0-5.2) X10^6/uL Hgb 11.9 L (12.0-16.0) g/dL Hct 34.9 L (36-46) % MCV 88.8 (80-100) fL MCH 30.4 (26-34) PG MCHC 34.2 (30-36) % RDW 13.5 (11.6-14.8) % Plt Count 289 (150-400) X10^3/uL Neut % (Auto) 89.2 H (50-75) % Lymph % (Auto) 7.4 L (25-40) % [place] % (Auto) 3.1 (3-14) % Eos % (Auto) 0.0 L (2-4) % Baso % (Auto) 0.3 (0-2) % Neut # (Auto) 86568 H (5498-1863) /uL Lymph # (Auto) 1100 (4310-9683) /uL [place] # (Auto) 500 (0-900) /uL Eos # (Auto) 0 (0-450) /uL Baso # (Auto) 0 (0-100) /uL Sodium 134 L (137-145) mmol/L Potassium 3.5 (3.4-5.1) mmol/L Chloride 102 (98-107) mmol/L Carbon Dioxide 21 L (22-32) mmol/L BUN 9 (7-17) mg/dL Creatinine 0.60 (0.52-1.04) mg/dL Estimated GFR > 60.0 (>60) mL/min BUN/Creatinine Ratio 15.0 (6-22) Glucose 127 H (70-100) mg/dL Calcium 8.6 (8.4-10.2) mg/dL Magnesium 2.0 (1.6-2.3) mg/dL Total Bilirubin 0.4 (0.2-1.3) mg/dL AST 24 (14-36) IU/L ALT 18 (9-52) IU/L Alkaline Phosphatase 67 (38-126) U/L Total Protein 8.2 (6.3-8.2) g/dL Albumin 4.3 (3.5-5.0) g/dL Globulin 3.9 (1.7-4.1) g/dL Albumin/Globulin Ratio 1.1 (1.0-2.8) Urine RBC 5-10/hpf H (0-5/HPF) Urine WBC 5-10/hpf H (0-5/HPF) Ur Squamous Epith Cells 5-10 /hpf H Ur Transition Epith Cell 5-10/hpf H (0-5/HPF) Ur Renal Epithelial Cell 1-5/hpf Urine Bacteria None seen (None) Ur Culture Indicated? Cult not indicated Urine Dip Bedside Urine Glucose Negative Bedside Urine Bilirubin - Negative Bedside Urine Ketone + 15 Urine Specific [place] 1.020 Bedside Urine Occult Blood +/- Bedside Urine pH 6.5 Bedside Urine Protein ++ 100 Bedside Urine Urobilinogen +/- 1mg Bedside Urine Nitrite - Negative Bedside Urine Leukocytes +/- 15 Esterase <Lyndsay Contreras, DO - Last Filed: 08/08/18 07:49> Lab Data Lab Results 08/07/18 08/07/18 08/07/18 Range/Units 13:20 13:20 13:53 WBC 15.4 H (4.5-11.0) X10^3/uL RBC 3.93 L (4.0-5.2) X10^6/uL Hgb 11.9 L (12.0-16.0) g/dL Hct 34.9 L (36-46) % MCV 88.8 (80-100) fL MCH 30.4 (26-34) PG MCHC 34.2 (30-36) % RDW 13.5 (11.6-14.8) % Plt Count 289 (150-400) X10^3/uL Neut % (Auto) 89.2 H (50-75) % Lymph % (Auto) 7.4 L (25-40) % [place] % (Auto) 3.1 (3-14) % Eos % (Auto) 0.0 L (2-4) % Baso % (Auto) 0.3 (0-2) % Neut # (Auto) 54562 H (4833-6431) /uL Lymph # (Auto) 1100 (9361-7365) /uL [place] # (Auto) 500 (0-900) /uL Eos # (Auto) 0 (0-450) /uL Baso # (Auto) 0 (0-100) /uL Sodium 134 L (137-145) mmol/L Potassium 3.5 (3.4-5.1) mmol/L Chloride 102 (98-107) mmol/L Carbon Dioxide 21 L (22-32) mmol/L BUN 9 (7-17) mg/dL Creatinine 0.60 (0.52-1.04) mg/dL Estimated GFR > 60.0 (>60) mL/min BUN/Creatinine Ratio 15.0 (6-22) Glucose 127 H (70-100) mg/dL Calcium 8.6 (8.4-10.2) mg/dL Magnesium 2.0 (1.6-2.3) mg/dL Total Bilirubin 0.4 (0.2-1.3) mg/dL AST 24 (14-36) IU/L ALT 18 (9-52) IU/L Alkaline Phosphatase 67 (38-126) U/L Total Protein 8.2 (6.3-8.2) g/dL Albumin 4.3 (3.5-5.0) g/dL Globulin 3.9 (1.7-4.1) g/dL Albumin/Globulin Ratio 1.1 (1.0-2.8) Urine RBC 5-10/hpf H (0-5/HPF) Urine WBC 5-10/hpf H (0-5/HPF) Ur Squamous Epith Cells 5-10 /hpf H Ur Transition Epith Cell 5-10/hpf H (0-5/HPF) Ur Renal Epithelial Cell 1-5/hpf Urine Bacteria None seen (None) Ur Culture Indicated? Cult not indicated Urine Dip Bedside Urine Glucose Negative Bedside Urine Bilirubin - Negative Bedside Urine Ketone + 15 Urine Specific [place] 1.020 Bedside Urine Occult Blood +/- Bedside Urine pH 6.5 Bedside Urine Protein ++ 100 Bedside Urine Urobilinogen +/- 1mg Bedside Urine Nitrite - Negative Bedside Urine Leukocytes +/- 15 Esterase Discharge Plan Departure Patient Disposition: Home Clinical Impression: Hyperemesis gravidarum Migraine Qualifiers: Migraine type: unspecified Status migrainosus presence: without status migrainosus Intractability: not intractable Qualified Code(s): G43.909 - Migraine, unspecified, not intractable, without status migrainosus Nausea & vomiting Qualifiers: Vomiting type: unspecified Vomiting Intractability: non-intractable Qualified Code(s): R11.2 - Nausea with vomiting, unspecified Discharge Date/Time: 08/07/18 17:05 Interventions: ED Discharge Assessment Last Done: 08/07/18 17:03 Instructions: Nausea of (Alternative Therapy), DI for Migraine, DI for Nausea -- Adult Activity Restrictions/Additional Instructions: since you are feeling better, you can return home. please return if you are feeling acutely worse again. Otherwise, please rest at home in a dark quiet place, avoid screens this evening to help your migraine. Continue clear fluids and try to eat a little bit of bland food every couple of hours to keep something in your stomach as this is likely to help with your nausea. Continue your home medicines as needed. Follow up with your PCP if you are not continuing to improve over the weekend to determine whether to try any different treatments to have at home for your nausea and headaches Prescriptions: No Action ondansetron HCl 4 mg tablet 4 mg PO TID-QID PRN (Reason: nausea and vomiting) Qty: 30 RF: 2 PNV cmb#95-ferrous fumarate-FA [] 28 mg iron- 800 mcg Tablet 1 tab PO DAILY RF: 0 promethazine 25 mg tablet 25 mg PO Q4-6H PRN (Reason: nausea and vomiting) Qty: 14 RF: 0 Referrals: Philipp Borrego MD [Primary Care Provider] - <Lyndsay Contreras DO - Last Filed: 08/08/18 07:49> Cosign ED Attending Heronature Attestation: I was immediately available in the department for consultation. Documentation has been reviewed. I agree with assessment and plan.
[2018-08-07 13:35] LABS: Add Manual Diff / Slide Review NO; Basophils Absolute Auto 0 /uL (0-100); Basophils Percent Auto 0.3 % (0-2); Eosinophils Absolute Auto 0 /uL (0-450); Hematocrit 34.9 % (36-46); Hemoglobin 11.9 g/dL (12.0-16.0); Lymphocytes Absolute Auto 1100 /uL (1100-4500); Lymphocytes Percent Auto 7.4 % (25-40); Mean Corpuscular HGB Conc 34.2 % (30-36); Mean Corpuscular Hemoglobin 30.4 PG (26-34); Mean Corpuscular Volume 88.8 fL (80-100); Monocytes Absolute Auto 500 /uL (0-900); Monocytes Percent Auto 3.1 % (3-14); Neutrophils Absolute Auto 13700 /uL (1500-7000); Neutrophils Percent Auto 89.2 % (50-75); Platelet Count 289 X10^3/uL (150-400); Red Blood Cell Count 3.93 X10^6/uL (4.0-5.2); Red Cell Distribution Width 13.5 % (11.6-14.8); White Blood Cell Count 15.4 X10^3/uL (4.5-11.0)
[2018-08-07 13:47] LABS: Alanine Aminotransferase 18 IU/L (9-52); Albumin 4.3 g/dL (3.5-5.0); Albumin Globulin Ratio 1.1 (1.0-2.8); Alkaline Phosphatase 67 U/L (38-126); Aspartate Aminotransferase 24 IU/L (14-36); Bilirubin Total 0.4 mg/dL (0.2-1.3); Blood Urea Nitrogen 9 mg/dL (7-17); Calcium 8.6 mg/dL (8.4-10.2); Carbon Dioxide 21 mmol/L (22-32); Chloride 102 mmol/L (98-107); Estimated Glomerular Filt Rate > 60.0 mL/min (>60); Globulin 3.9 g/dL (1.7-4.1); Glucose 127 mg/dL (70-100); HEMOLYSIS < 15 (0-50); Potassium 3.5 mmol/L (3.4-5.1); Sodium 134 mmol/L (137-145); Total Protein 8.2 g/dL (6.3-8.2)
[2018-08-07 13:55] LABS: Bacteria Urine None Seen
[2018-08-07 14:19] LABS: Culture Indicated Urine Cult Not Indicated; RBC Urine 5-10/HPF (0-5/HPF); Renal Epithelial Cells Urine 1-5/HPF; Squamous Epithelial Cell Urine 5-10 /HPF; Transitional Epi Cells Urine 5-10/HPF (0-5/HPF); WBC Urine 5-10/HPF (0-5/HPF)
[2018-08-07] MEDS: METOCLOPRAMIDE 10 MG/2 ML INJ IV (15:32)
--- NOTE | 2018-08-07 15:46 | PC.NURSE ---
Patient up to restroom reports feeling shakey states her head and neck are throbbing Patient placed back in bed, cool compress to neck and warm blanket provided.
[2018-08-07] MEDS: BUTALB/APAP/CAFFEINE 50/325/40 TABLET 1 EACH PO (15:58)
--- NOTE | 2018-08-07 16:39 | PC.NURSE ---
Patient resting, lights dimmed. Reports improvement in pain and nausea.
[2018-08-07 16:45] VITALS: BP 110/62; PULSE 88; RESP 12; O2SAT 100
== END 2018-08-07 17:05 | disposition home or self-care (01) ==
PROVIDERS: Emergency Provider Internal Medicine; PCP Family Medicine
DX: O21.0 Mild hyperemesis gravidarum (principal); G43.909 Migraine, unspecified, not intractable, without status migrainosus
CPT/HCPCS: 36591; 80053; 81003; 81015; 83735; 85025; 96361; 96374; 96375; 99283; 99284; J2405; J2765

== ENCOUNTER 2018-08-09 07:23 | Observation (INO) | payer OTHER, MEDICAID, SELFPAY ==
[2018-08-09] MEDS: ONDANSETRON 4 MG/2 ML INJ IV (08:21)
[2018-08-09] MEDS: LACTATED RINGERS 2,000 ML 1000 ML IV (08:21)
[2018-08-09] MEDS: PROMETHAZINE 12.5 MG TABLET PO (09:37)
== END 2018-08-09 11:33 | disposition home or self-care (01) ==
PROVIDERS: Admitting Provider Obstetrics & Gynecology; PCP Family Medicine; Visit Provider Obstetrics & Gynecology
DX: O26.892 Other specified pregnancy related conditions, second trimester (principal); R11.2 Nausea with vomiting, unspecified; R51 Headache; Z3A.26 26 weeks gestation of pregnancy
CPT/HCPCS: 59025; 59050; 96360; 96361; G0378; G0379; J2405; Q0169

== ENCOUNTER → 2018-10-15 16:33 | Outpatient (CLI) | payer OTHER, MEDICAID, SELFPAY ==
[2018-10-16 17:32] LABS: Strep Grp B PCR POS for Grp B Strep
== END ==
PROVIDERS: PCP Family Medicine; Visit Provider Family Medicine
DX: Z34.93 Encounter for supervision of normal pregnancy, unspecified, third trimester (principal)
CPT/HCPCS: 87653

== ENCOUNTER → 2018-10-22 16:15 | Outpatient (CLI) | payer OTHER, MEDICAID, SELFPAY | PROVIDERS: PCP Family Medicine; Visit Provider Family Medicine | DX: Z34.83 Encounter for supervision of other normal pregnancy, third trimester (principal); Z3A.37 37 weeks gestation of pregnancy | CPT/HCPCS: 87086 ==

== ENCOUNTER 2018-11-06 20:54 | Inpatient (IN) | payer OTHER, MEDICAID, SELFPAY ==
[2018-11-06 21:27] VITALS: BP 117/61
[2018-11-06] MEDS: PENICILLIN G POTASSIUM 5,000,000 UNIT in DEXTROSE 5% IN WATER 250 ML IV (21:50)
[2018-11-06] MEDS: LACTATED RINGERS 1,000 ML 100 ML IV (21:50)
[2018-11-06 22:19] LABS: Add Manual Diff / Slide Review NO; Basophils Absolute Auto 100 /uL (0-100); Basophils Percent Auto 0.6 % (0-2); Eosinophils Absolute Auto 100 /uL (0-450); Eosinophils Percent Auto 0.8 % (2-4); Hematocrit 34.6 % (36-46); Hemoglobin 11.7 g/dL (12.0-16.0); Lymphocytes Absolute Auto 3900 /uL (1100-4500); Lymphocytes Percent Auto 27.9 % (25-40); Mean Corpuscular HGB Conc 33.9 % (30-36); Mean Corpuscular Hemoglobin 29.1 PG (26-34); Mean Corpuscular Volume 85.9 fL (80-100); Monocytes Absolute Auto 1000 /uL (0-900); Monocytes Percent Auto 7.2 % (3-14); Neutrophils Absolute Auto 9000 /uL (1500-7000); Neutrophils Percent Auto 63.5 % (50-75); Platelet Count 302 X10^3/uL (150-400); Red Blood Cell Count 4.03 X10^6/uL (4.0-5.2); Red Cell Distribution Width 14.5 % (11.6-14.8); White Blood Cell Count 14.2 X10^3/uL (4.5-11.0)
[2018-11-06 22:44] VITALS: BP 117/60
--- NOTE | 2018-11-06 22:45 | P.HPOB_ITS ---
OB HPI Date/Time Date of admission: 11/06/18 Date Patient Seen: 11/06/18 Time Patient Seen: 22:30 History of Present Condition Chief complaint: Narrative: Meghann Herndon is a 27 year old female G4 para 2 estimated due date November 10, 2018 consistent with early ultrasound and LMP she is approximately 39 weeks and 2 days. She presents to labor and delivery floor and labor. She says symptoms started approximately 1-2 hours before arrival. Patient has complaints of increasing contractions strength. She denies any significant symptoms fevers chills nausea vomiting. Patient has had no leakage of fluid and no problems with vaginal discharge. On arrival to the labor and delivery floor she is rose regularly vital signs are stable and she was reported to be dilated to 4 cm. care was established at approximately 8 weeks. was complicated by hyperemesis requiring IV fluids during her 1st and part of her early 2nd trimester. She also has some migraine headaches during the early . Her medications included vitamins Zofran and Phenergan. blood work shows blood type O positive antibody screen negative VDRL nonreactive hepatitis B surface antigen negative HIV negative GC Chlamydia negative rubella immune hepatitis-C negative HSV negative varicella immune 2nd trimester integrated screen was negative. 1 hour glucose 110. Past medical history of anemia pyelonephritis urinary tract infections. Past surgical history denies any significant operations. Past Gynecological history history of abnormal Pap smear and HPV positive. Obstetric history. Two previous vaginal births male and female . With 1 miscarriage. Evaluation Evaluation Laboratory results: Laboratory Tests 11/06/18 21:40 WBC 14.2 H RBC 4.03 Hgb 11.7 L Hct 34.6 L MCV 85.9 MCH 29.1 MCHC 33.9 RDW 14.5 Plt Count 302 Neut % (Auto) 63.5 Lymph % (Auto) 27.9 [place] % (Auto) 7.2 Eos % (Auto) 0.8 L Baso % (Auto) 0.6 Neut # (Auto) 9000 H Lymph # (Auto) 3900 [place] # (Auto) 1000 H Eos # (Auto) 100 Baso # (Auto) 100 PFSH Medical History (Updated 08/22/18 @ 00:01 by ) Hyperemesis gravidarum (Acute) Healthy adult (Chronic) Migraine headache (Chronic) Surgical History (Updated 08/07/18 @ 13:46 by Earlene Winchester PA-C) No pertinent past surgical history (Chronic) Social History Smoking Status: Never smoker Social History Smoking Status: Never smoker Meds Home Medications Medication Instructions Recorded Confirmed Type PNV cmb#95-ferrous fumarate-FA 1 tab PO DAILY 04/14/18 08/11/18 History [] clotrimazole 1 % vaginal cream 1 applicator VAG BEDTIME #45 gram 08/11/18 Rx promethazine 25 mg tablet 25 mg PO Q4-6H PRN #14 tab 09/25/18 09/25/18 Rx ondansetron HCl 4 mg tablet 4 mg PO TID-QID PRN #30 tab 10/29/18 Rx Allergies Allergy/AdvReac Type Severity Reaction Status Date / Time No Known Drug Allergies Allergy Verified 08/11/18 11:58 Exam Vital Signs (past 8 hours): - 11/06/18 21:27 Blood Pressure 117/61 Narrative Exam Narrative: . General: Alert no apparent distress. Affect is appropriate. [place] it is uncomfortable. HEENT: Neck is supple without lymphadenopathy pupils equal round and reactive. Cardio: S1-S2 regular rate and rhythm. Respiratory: Lungs clear to auscultation. Abdomen: Gravid. Extremities: Normal deep tendon reflexes trace edema. [place]: [Rose regularly every 3-5 minutes with 60 minute contractions moderate and strength.] heart tones: [Good heart tones 130s to 140s reactive strip.] Objective Labs Result Diagrams: 11/06/18 21:40 Labs: Laboratory Results - last 24 hr 11/06/18 21:40 WBC 14.2 H RBC 4.03 Hgb 11.7 L Hct 34.6 L MCV 85.9 MCH 29.1 MCHC 33.9 RDW 14.5 Plt Count 302 Neut % (Auto) 63.5 Lymph % (Auto) 27.9 [place] % (Auto) 7.2 Eos % (Auto) 0.8 L Baso % (Auto) 0.6 Neut # (Auto) 9000 H Lymph # (Auto) 3900 [place] # (Auto) 1000 H Eos # (Auto) 100 Baso # (Auto) 100 Assessment and Plan Assessment and Plan Assessment and Plan narrative: 27-year-old G4 para 2 at 39+ weeks who presents to labor and delivery floor in active labor. She is rose. Category 1 tracing. Vital signs are stable. Patient with 2 previous vaginal deliveries. Contemplating tubal ligation after vaginal delivery. Orders were written for a nd reviewed. Informed consent was obtained risks benefits and alternatives complications were reviewed of vaginal delivery. Expectant management. Due to her GBS positive status. Patient will be started on IV antibiotics. Hemoglobin hematocrit and blood type.
[2018-11-06] MEDS: OXYTOCIN 10 UNIT/ML VIAL IM (23:12)
--- NOTE | 2018-11-06 23:32 | PM.PROC.1 ---
Procedures Date/Time Date of procedure: 11/06/18 Time of procedure: 23:32 General Procedure description: Vaginal delivery procedure note Stage I approximately 3 hours. The patient presented in spontaneous labor with rapid progression to complete. During stage I vital signs were stable afebrile blood count was stable. GBS positive she received 1 dose of antibiotics before rupture of membranes. She received no epidural. heart tones were reassuring during this stage. Stage II approximately 15 minutes. Patient had rupture of membranes at +1 position clear amniotic fluid than baby spontaneously delivered with a few pushes. Baby was delivered in the direct OPP position. There was no nuchal cord. Baby was spontaneous vigorous cry. There was clear fluid. There is no vaginal cervical lacerations. After delivery baby was placed on mother's abdomen. There is rapid delivery of head and shoulders without difficulty. Baby's Apgars were 8 and 9. Stage III after the delivery of the baby P shunt was given IM Pitocin 10 units. Patient had delivery of intact placenta expected of the vagina showed no cervical lacerations or vaginal lacerations. Baby was active and vigorous Apgars were 8 and 9 and mom was resting comfortably.
[2018-11-07] MEDS: HYDROCODONE/ACET 5/325 TABLET 1 TAB PO ×3 (01:05→14:33)
[2018-11-07 06:41] LABS: Hematocrit 32.3 % (36-46); Hemoglobin 10.8 g/dL (12.0-16.0)
--- NOTE | 2018-11-07 08:05 | P.DS_ITS ---
History of Present Illness Chief complaint: Discharge Providers Date of admission: 11/06/18 20:54 Discharge Date: 11/07/18 Primary care physician: Philipp Borrego MD Consults: 11/07/18 06:21 Consult to Political Advisor Routine Comment: Discharge provider: Philipp Borrego MD Summary Discharge Diagnosis: G for the para 3 status post vaginal delivery Hospital Course: Vaginal delivery with routine post vaginal care Exam Narrative Exam Narrative: Vitals: [Pulse 68 respiratory rate 18 temperature 9 8.8 input 2400 output 1800]. General: Alert no apparent distress. Affect is appropriate. [place] it is uncomfortable. HEENT: Neck is supple without lymphadenopathy pupils equal round and reactive. Cardio: S1-S2 regular rate and rhythm. Respiratory: Lungs clear to auscultation. Abdomen: Uterus firm. Incision clean dry and intact. Extremities: Normal deep tendon reflexes trace edema. Objective Labs Result Diagrams: 11/07/18 06:06 Labs: Laboratory Results - last 24 hr 11/06/18 11/06/18 11/07/18 21:40 21:40 06:06 WBC 14.2 H RBC 4.03 Hgb 11.7 L 10.8 L Hct 34.6 L 32.3 L MCV 85.9 MCH 29.1 MCHC 33.9 RDW 14.5 Plt Count 302 Neut % (Auto) 63.5 Lymph % (Auto) 27.9 [place] % (Auto) 7.2 Eos % (Auto) 0.8 L Baso % (Auto) 0.6 Neut # (Auto) 9000 H Lymph # (Auto) 3900 [place] # (Auto) 1000 H Eos # (Auto) 100 Baso # (Auto) 100 Blood Type O Positive Antibody Screen Negative Discharge Plan Discharge Plan Patient Disposition: Home Discharge comment: f/u jah in 6 weeks Discharge Med Rec/Prescriptions Prescriptions: New hydrocodone-acetaminophen 5-325 mg Tablet 1 tab PO Q4HR Qty: 15 RF: 0 ibuprofen 600 mg Tablet 600 mg PO Q6HR PRN (Reason: Pain, Mild (1-3)) Qty: 30 RF: 0 docusate sodium 250 mg Capsule 250 mg PO DAILY Qty: 30 RF: 0 Continued PNV cmb#95-ferrous fumarate-FA [] 28 mg iron- 800 mcg Tablet 1 tab PO DAILY RF: 0 Discontinued ondansetron HCl 4 mg tablet 4 mg PO TID-QID PRN (Reason: nausea and vomiting) Qty: 30 RF: 2 promethazine 25 mg tablet 25 mg PO Q4-6H PRN (Reason: nausea and vomiting) Qty: 14 RF: 0 clotrimazole 1 % cream 1 applicator VAG BEDTIME Qty: 45 RF: 0 Follow up/Referrals: Philipp Borrego MD [Primary Care Provider] - Visit Report/Discharge Packet Visit Report Forms: Stroke Signs & Symptoms Discharge Data Primary Care Provider: Philipp Borrego Attending Provider: Philipp Borrego Admit Date/Time: 11/06/18 20:54
[2018-11-07] MEDS: DOCUSATE 250 MG CAPSULE PO (10:01)
[2018-11-07] MEDS: FERROUS GLUCONATE 324 MG TABLET PO (10:02)
[2018-11-07] MEDS: PRENATAL VIT,CALC/IRON/FOLIC 1 TABLET 1 TAB PO (10:02)
[2018-11-07] MEDS: IBUPROFEN 600 MG TABLET PO ×3 (10:04→16:00)
[2018-11-07] MEDS: ONDANSETRON 4 MG ODT 8 MG PO (10:30)
[2018-11-08] MEDS: HYDROCODONE/ACET 5/325 TABLET 1 TAB PO ×2 (02:09→06:43)
[2018-11-08] MEDS: IBUPROFEN 600 MG TABLET PO (02:10)
--- NOTE | 2018-11-08 10:11 | PM.PN.1 ---
Subjective Date Patient Seen: 11/08/18 Time Patient Seen: 10:11 Interval history: Patient doing well today decided not to go home yesterday. Some minimal to moderate cramping with breast-feeding. Positive bowel movement urination. Pain is well controlled she is afebrile. Bleeding as his anticipated. Mild lower extremity edema symmetrical. Some mild nausea which she has been getting some Zofran for specially with the contractions. Exam Narrative Exam Narrative: General: Alert no apparent distress. Affect is appropriate. [place] it is uncomfortable. HEENT: Neck is supple without lymphadenopathy pupils equal round and reactive. Cardio: S1-S2 regular rate and rhythm. Respiratory: Lungs clear to auscultation. Abdomen: Uterus firm. Extremities: Normal deep tendon reflexes trace edema. Objective Labs Result Diagrams: 11/07/18 06:06 Assessment & Plan Assessment & Plan narrative: day 2. Doing well. Status post vaginal delivery. Routine care. Ambulating eating tolerating diet hemoglobin hematocrit stable. Pain is well controlled with ibuprofen. Mild nausea. is going okay.
[2018-11-08 10:24] VITALS: BP 117/60; PULSE 88; RESP 18; TEMP 36.9
== END 2018-11-08 10:55 | disposition home or self-care (01) | DRG 560 ==
PROVIDERS: Admitting Provider Family Medicine; PCP Family Medicine; Visit Provider Family Medicine
DX: O99.824 Streptococcus B carrier state complicating childbirth (principal); Z37.0 Single live birth; Z3A.39 39 weeks gestation of pregnancy
CPT/HCPCS: 36415; 59050; 59409; 85014; 85018; 85025; 86850; 86900; 86901; G0379; J2540; J2590

== ENCOUNTER 2019-01-11 13:19 | Day surgery (SDC) | payer OTHER, MEDICAID, SELFPAY ==
[2018-12-21 13:35] VITALS: BMI 27.8
[2019-01-11] VITALS (8 sets, daily range): BP systolic 98–111; BP diastolic 48–71; PULSE 59–80; RESP 12–18; TEMP 36.3–37.1; O2SAT 97–100; BMI 27.8
[2019-01-11] MEDS: LACTATED RINGERS 1,000 ML 100 ML IV (13:48)
--- NOTE | 2019-01-11 14:14 | P.HPOB_ITS ---
History of Present Illness Narrative: Meghann Herndon is a 28 year old female here for laparoscopic tubal ligation for sterilization [facility] Medical History (Updated 01/11/19 @ 14:14 by Lashonda Mendoza MD) () (Acute) Never smoked (Acute) Sterilization consult (Acute) Vaginal delivery (Acute ~11/06/18) Hyperemesis gravidarum (Acute) Healthy adult (Chronic) Migraine headache (Chronic) Surgical History (Updated 08/07/18 @ 13:46 by Earlene Winchester PA-C) No pertinent past surgical history (Chronic) Social History household members: spouse Smoking Status: Never smoker Social History household members: spouse Smoking Status: Never smoker Meds Home Medications Medication Instructions Recorded Confirmed Type norethindrone (contraceptive) 0.35 0.35 mg PO DAILY #84 tab 12/16/18 Rx mg tablet Allergies Allergy/AdvReac Type Severity Reaction Status Date / Time No Known Drug Allergies Allergy Verified 12/21/18 13:36 Review of Systems Review of Systems All systems reviewed & are unremarkable except as noted in HPI and below Exam Vital Signs (past 8 hours): - 01/11/19 13:36 Temperature 97.6 F Pulse Rate 59 L Respiratory Rate 16 Blood Pressure 98/54 L Pulse Oximetry 98 Oxygen Delivery Method Room Air Narrative Exam Narrative: Planned procedure: Laparoscopic bilateral tubal ligation by fulguration History of present illness: Patient is a 28-year-old 4 para 3 AB1 who had a vaginal delivery on 11/06/2018 who is requesting tubal ligation. Patient's last was complicated by hyperemesis requiring multiple admissions for IV fluids, multiple medications. She does not wish to have another . Patient signed the [facility] tubal ligation consent form on 09/25/2018. Patient is aware of all control options and is requesting sterilization. She is aware she will never have children after this. Patient's past medical history includes hyperemesis, migraines, anemia, UTIs and pyelonephritis. Patient was able to tolerate hydrocodone without any difficulty. Physical exam: HEENT exam within normal limits. Lungs are clear to auscultation and percussion. Heart is regular rate and rhythm no S3-S4 or murmurs. Abdomen is soft, nontender. No organomegaly. Pelvic exam was not repeated. Extremities without edema and nontender. Tubal ligation handout was given to patient and gone over with her. Consent form was reviewed and signed. Patient's questions were answered. Risk of da mage to internal structures, 1 in 400 risk of ectopic discussed with patient. Risk for infection, bleeding, scar tissue after the procedure discussed. Assessment & Plan (1) Admission for sterilization: Current visit: Yes Status: Acute Assessment & Plan narrative: Patient is requesting permanent sterilization via laparoscopic tubal ligation.
--- NOTE | 2019-01-11 14:16 | PM.PREOP ---
Pre-operative Note Interval Note History & Physical reviewed/Exam performed by Physician: Yes Changes to H&P: No
[2019-01-11] MEDS: BUPIVACAINE 0.5% W/ EPI (PF) VIAL 30 ML INJ (14:51)
--- NOTE | 2019-01-11 14:59 | PM.OP.1 ---
Operative Date/Time/Diagnoses Date of procedure: 01/11/19 Time of procedure: 14:59 Pre-op diagnosis: Undesired fertility with requesting permanent sterilization by tubal ligation Post-op diagnosis: same Procedure & Clinicians Procedure: Bilateral laparoscopic tubal ligation by fulguration Same procedure as scheduled: Yes Indications: Undesired fertility Surgeon: Lashonad Mendoza Click Yes if Unassisted: Yes Anesthesia Type: General Operative Notes Findings: Normal tubes, ovaries, uterus and intra-abdominal contents Closure Type: primary Specimen(s): none sent Estimated Blood Loss (mL): 1 Procedure in detail: Patient was brought to the operating room where she underwent general anesthesia. She was placed in low yellowfin stirrups and prepped and draped in usual sterile fashion. Antibiotics were not indicated. Pulsatile stockings were in place and functional. Warming was with blankets. A check system was reviewed with the staff in the room prior to beginning the case. The area of the incisions were injected with half percent Marcaine with epinephrine. An incision was made in the umbilicus with a scalpel and the Verres needle placed in the abdomen. Confirmation of correct placement of the needle was performed by withdrawing on the syringe and then allowing fluid to fall freely through the needle. The abdomen was insufflated to 4 L of CO2. A 5 mm trocar was placed under direct visualization. 1 other 5 mm trochars were placed in the right lower quadrant under direct visualization after incising the skin. There did not appear to be any damage with placement of the trocars. The right fallopian tube was grasped and cauterized x3 and cut with the PK generator. Same procedure was performed on the left fallopian tube. Adequate hemostasis was noted. The CO2 was allowed to escape from the abdomen. The trochars were removed. Skin was closed with 4-0 monocryl. The patient went to recovery room in good condition. Complications: none Condition: stable Disposition: same day surgery Plan for aftercare: Home when awake and stable
[2019-01-11] MEDS: fentaNYL 100 MCG/2 ML INJ 50 MCG IV (15:12)
[2019-01-11] MEDS: BENZOCAINE/MENTHOL 1 LOZ PKT 1 EACH PO (15:21)
== END 2019-01-11 16:05 | disposition home or self-care (01) ==
PROVIDERS: PCP Family Medicine; Visit Provider Specialist
PROC: (CPT 58671; principal; 2019-01-11 14:30)
DX: Z30.2 Encounter for sterilization (principal)
CPT/HCPCS: 58670; J0330; J1100; J1885; J2405; J2704; J3010

== ENCOUNTER 2021-04-23 10:27 | Emergency (ER) | payer OTHER, MEDICAID, SELFPAY ==
[2021-04-23] VITALS (7 sets, daily range): BP systolic 118–149; BP diastolic 76–95; PULSE 59–88; RESP 18; TEMP 36.7; O2SAT 97–100
[2021-04-23] MEDS: SODIUM CHLORIDE 0.9% 1,000 ML 1000 ML IV ×2 (11:40→14:04)
[2021-04-23] MEDS: ONDANSETRON 4 MG/2 ML INJ IV (11:41)
[2021-04-23] MEDS: diphenhydrAMINE 50 MG/ML VIAL 25 MG IV (11:44)
[2021-04-23] MEDS: METOCLOPRAMIDE 10 MG/2 ML INJ IV (11:44)
[2021-04-23 11:55] LABS: Add Manual Diff / Slide Review NO; Basophils Absolute Auto 100 /uL (0-100); Basophils Percent Auto 0.5 % (0-2); Eosinophils Absolute Auto 0 /uL (0-450); Hematocrit 44.2 % (36-46); Hemoglobin 15.1 g/dL (12.0-16.0); Lymphocytes Absolute Auto 1700 /uL (1100-4500); Lymphocytes Percent Auto 15.2 % (25-40); Mean Corpuscular HGB Conc 34.1 % (30-36); Mean Corpuscular Hemoglobin 28.3 PG (26-34); Monocytes Absolute Auto 700 /uL (0-900); Monocytes Percent Auto 6.5 % (3-14); Neutrophils Absolute Auto 8600 /uL (1500-7000); Neutrophils Percent Auto 77.8 % (50-75); Platelet Count 398 X10^3/uL (150-400); Red Blood Cell Count 5.32 X10^6/uL (4.0-5.2)
--- NOTE | 2021-04-23 12:26 | ED_ITS ---
HPI - Nausea/Vomiting/Diarrhea General Chief complaint: Nausea/Vomiting/Diarrhea Stated complaint: Vomitting since friday, dehydrated, body aches Time Seen by Provider: 04/23/21 12:22 Source: patient Mode of arrival: Ambulatory Limitations: no limitations History of Present Illness HPI Narrative: The patient has been vomiting frequently for the last 3 days. She may vomited a small amount of blood. She has no history of PUD. She has ongoing nausea, she denies upper abdominal pain. She has no diarrhea. She has no prior history of abdominal surgeries. She has mild dysuria, no back pain. is unlikely, she has undergone tubal ligation past. She has a prior history of hyperemesis cannabinoid disorder. Vomiting ceased when she previously stopped smoking marijuana. She is now back to smoking marijuana several times daily. She has no URI symptoms, no fever or chills, no other symptoms other than described above. Related Data Previous Rx's Medication Instructions Recorded ondansetron 4 mg disintegrating 4 mg PO Q4H PRN #20 tab 04/23/21 tablet sulfamethoxazole 800 1 tab PO BID 7 Days #14 tab 04/23/21 mg-trimethoprim 160 mg tablet Allergies Allergy/AdvReac Type Severity Reaction Status Date / Time No Known Drug Allergies Allergy Verified 04/23/21 11:16 Review of Systems Constitutional Constitutional: Reports as per HPI, Reports anorexia, Denies body ache(s), Denies chills, Denies fatigue, Denies fever(s) and Denies weakness Eyes Eyes: Denies blurry vision and Denies change in vision ENT Ears, Nose, Mouth, and Throat: Denies vertigo, Denies dizziness, Denies facial pain and Denies sore throat Cardiovascular Cardiovascular: Denies chest pain, Denies rapid heart rate, Denies pedal edema and Denies dyspnea Respiratory Respiratory: Denies chest congestion and Denies dyspnea Gastrointestinal Gastrointestinal: Reports as per HPI Genitourinary Genitourinary: Reports dysmenorrhea and Denies pelvic pain Musculoskeletal Musculoskeletal: Denies back pain Integumentary/Breasts Skin/Breast: Denies rash and Denies sores Neurologic Neurologic: Denies confusion, Denies vertigo, Denies dizziness and Denies weakness Psychiatric Psychiatric: Denies anxiety and Denies confusion Endocrine Endocrine: Denies fatigue Patient History Medical History (infant) Healthy adult Hyperemesis gravidarum Migraine headache Never smoked Sterilization consult Vaginal delivery (~11/06/18) Surgical History No pertinent past surgical history Social History household members: spouse Smoking Status: Never smoker Smoking Status: Never smoker Substance Use Type: marijuana Exam Initial Vital Signs Initial Vital Signs: Vital Signs Pulse Rate 63 04/23/21 11:07 Pulse Oximetry 97 04/23/21 11:07 Const General: cooperative, lethargic and other (Responds appropriate) Limitations: mental status not altered HENMT Head: normal to inspection, normocephalic, atraumatic and abrasion Face and sinus: normal facial exam and sinuses tender Mouth: oral mucosae normal Throat: posterior oropharynx normal Eyes Conjunctivae: conjunctivae normal Sclera: sclerae normal Pupils: PERRL EOM: EOM intact bilaterally Neck Neck: normal visual inspection and No lymphadenopathy Resp Effort & Inspection: normal respiratory effort Auscultation: clear to auscultation bilaterally Cardio Rate: regular rate Rhythm: regular rhythm Heart Sounds: S1 normal, S2 normal and no murmurs GI Palpation: soft, No guarding, No mass and tender (Epigastric tenderness) Auscultation: normal bowel sounds Back/Spine/Pelvis Back: No CVA tenderness Skin General: no rashes or lesions noted Neuro General: patient alert, patient awake, patient oriented x3 and no focal motor deficits Extrem General: normal to inspection, full ROM and no calf tenderness Psych Mental Status: mental status grossly normal Course Course Course Narrative: The patient is feeling much better after IV hydration, and anti medics. A UTI was discovered, IV Rocephin was given. She will be discharged home on , as well as Zofran. She is advised to avoid marijuana. Orders Ordered: ED Orders 04/23/21 11:40 COVID19 -Nasal swab/Pre-Proc Stat 04/23/21 11:45 Complete Blood Count AUTO DIFF Stat Comprehensive Metabolic Panel Stat Lipase Stat 04/23/21 13:47 Urine Culture Stat Urine Microscopic Stat Discontinued Medications Diphenhydramine HCl (Diphenhydramine 50 Mg/Ml Vial) 25 mg IV NOW ONE Stop: 04/23/21 11:31 Last Admin: 04/23/21 11:44 Dose: 25 mg Documented by: KAYDEN Sodium Chloride (Normal Saline 0.9%) 1,000 mls @ 1,000 mls/hr IV BOLUS ONE Stop: 04/23/21 12:06 Last Infusion: 04/23/21 13:01 Dose: 0 mls/hr Documented by: Admin: 04/23/21 11:40 Dose: 1,000 mls/hr Documented by: KAYDEN Sodium Chloride (Normal Saline 0.9%) 1,000 mls @ 1,000 mls/hr IV BOLUS ONE Stop: 04/23/21 14:29 Last Infusion: 04/23/21 15:48 Dose: 0 mls/hr Documented by: Admin: 04/23/21 14:04 Dose: 1,000 mls/hr Documented by: CHARITY Ceftriaxone Sodium 1,000 mg/ (Sodium Chloride) 100 mls @ 200 mls/hr IV NOW ONE Stop: 04/23/21 15:07 Last Admin: 04/23/21 15:48 Dose: 200 mls/hr Documented by: CHARITY Metoclopramide HCl (Metoclopramide 10 Mg/2 Ml Inj) 10 mg IV NOW ONE Stop: 04/23/21 11:31 Last Admin: 04/23/21 11:44 Dose: 10 mg Documented by: KAYDEN Ondansetron HCl (Ondansetron 4 Mg/2 Ml Inj) 4 mg IV NOW ONE Stop: 04/23/21 11:07 Last Admin: 04/23/21 11:41 Dose: 4 mg Documented by: KAYDEN Pantoprazole Sodium (Pantoprazole 40 Mg Vial) 40 mg IV NOW ONE Stop: 04/23/21 12:26 Last Admin: 04/23/21 12:31 Dose: 40 mg Documented by: CHARITY Potassium Chloride (Potassium Chloride 20 Meq Tab) 20 meq PO NOW ONE Stop: 04/23/21 14:48 Last Admin: 04/23/21 14:56 Dose: 20 meq Documented by: KAYDEN Vital Signs Vital signs: Vital Signs - 8 hr 04/23/21 11:07 04/23/21 11:08 04/23/21 11:11 Temperature 98.1 F Pulse Rate 63 67 88 Respiratory Rate 18 Blood Pressure 149/95 H 147/95 H Pulse Oximetry 97 97 99 04/23/21 12:36 04/23/21 14:10 Temperature Pulse Rate 59 L 59 L Respiratory Rate Blood Pressure 137/79 127/76 Pulse Oximetry 97 99 MDM - Nausea/Vomiting/Diarrhea Lab Data Result diagrams: 04/23/21 11:45 04/23/21 11:45 Labs: Lab Results 04/23/21 04/23/21 04/23/21 Range/Units 11:40 11:45 11:45 WBC 11.0 (4.5-11.0) X10^3/uL RBC 5.32 H (4.0-5.2) X10^6/uL Hgb 15.1 (12.0-16.0) g/dL Hct 44.2 (36-46) % MCV 83.0 (80-100) fL MCH 28.3 (26-34) PG MCHC 34.1 (30-36) % RDW 13.0 (11.6-14.8) % Plt Count 398 (150-400) X10^3/uL Neut % (Auto) 77.8 H (50-75) % Lymph % (Auto) 15.2 L (25-40) % [place] % (Auto) 6.5 (3-14) % Eos % (Auto) 0.0 L (2-4) % Baso % (Auto) 0.5 (0-2) % Neut # (Auto) 8600 H (9116-2681) /uL Lymph # (Auto) 1700 (0430-3286) /uL [place] # (Auto) 700 (0-900) /uL Eos # (Auto) 0 (0-450) /uL Baso # (Auto) 100 (0-100) /uL Sodium 137 (137-145) mmol/L Potassium 3.1 L (3.4-5.1) mmol/L Chloride 96 L (98-107) mmol/L Carbon Dioxide 28 (22-32) mmol/L BUN 16 (7-17) mg/dL Creatinine 1.12 H (0.52-1.04) mg/dL Estimated GFR 56.7 L (>60) mL/min BUN/Creatinine Ratio 14.3 (6-22) Glucose 115 H (70-100) mg/dL Calcium 10.2 (8.4-10.2) mg/dL Total Bilirubin 1.2 (0.2-1.3) mg/dL AST 23 (14-36) IU/L ALT 17 (<35) IU/L Alkaline Phosphatase 74 (38-126) U/L Total Protein 9.5 H (6.3-8.2) g/dL Albumin 5.4 H (3.5-5.0) g/dL Globulin 4.1 (1.7-4.1) g/dL Albumin/Globulin Ratio 1.3 (1.0-2.8) Lipase 37 (23-300) U/L Urine RBC (0-5/HPF) Urine WBC (0-5/HPF) Ur Squamous Epith Cells (0-5/HPF) Urine Bacteria (None) Ur Culture Indicated? SARS-CoV-2 (PCR) Negative (Negative) 04/23/21 Range/Units 13:47 WBC (4.5-11.0) X10^3/uL RBC (4.0-5.2) X10^6/uL Hgb (12.0-16.0) g/dL Hct (36-46) % MCV (80-100) fL MCH (26-34) PG MCHC (30-36) % RDW (11.6-14.8) % Plt Count (150-400) X10^3/uL Neut % (Auto) (50-75) % Lymph % (Auto) (25-40) % [place] % (Auto) (3-14) % Eos % (Auto) (2-4) % Baso % (Auto) (0-2) % Neut # (Auto) (9770-3539) /uL Lymph # (Auto) (2502-3415) /uL [place] # (Auto) (0-900) /uL Eos # (Auto) (0-450) /uL Baso # (Auto) (0-100) /uL Sodium (137-145) mmol/L Potassium (3.4-5.1) mmol/L Chloride (98-107) mmol/L Carbon Dioxide (22-32) mmol/L BUN (7-17) mg/dL Creatinine (0.52-1.04) mg/dL Estimated GFR (>60) mL/min BUN/Creatinine Ratio (6-22) Glucose (70-100) mg/dL Calcium (8.4-10.2) mg/dL Total Bilirubin (0.2-1.3) mg/dL AST (14-36) IU/L ALT (<35) IU/L Alkaline Phosphatase (38-126) U/L Total Protein (6.3-8.2) g/dL Albumin (3.5-5.0) g/dL Globulin (1.7-4.1) g/dL Albumin/Globulin Ratio (1.0-2.8) Lipase (23-300) U/L Urine RBC 1-5/hpf (0-5/HPF) Urine WBC 30-100/hpf H (0-5/HPF) Ur Squamous Epith Cells 1+ (0-5/HPF) Urine Bacteria Many (>30) H (None) Ur Culture Indicated? Specimen cultured SARS-CoV-2 (PCR) (Negative) Urine Dip Bedside Urine Glucose Negative Bedside Urine Bilirubin - Negative Bedside Urine Ketone +/- 5 Urine Specific [place] 1.015 Bedside Urine Occult Blood +++ Bedside Urine pH 6.0 Bedside Urine Protein + 30 Bedside Urine Urobilinogen - Negative Bedside Urine Nitrite + Positive Bedside Urine Leukocytes + 70 Esterase Discharge Plan Departure Patient Disposition: Home Clinical Impression: Cannabis hyperemesis syndrome concurrent with and due to cannabis abuse Urinary tract infection Qualifiers: Urinary tract infection type: acute cystitis Hematuria presence: without hematuria Qualified Code(s): N30.00 - Acute cystitis without hematuria Instructions: DI for Urinary Tract Infection (UTI), Cannabinoid Hyperemesis Sy ndrome Activity Restrictions/Additional Instructions: Zofran 0DT every 4 hours as needed for nausea. Septra DS 2 times daily for the UTI. Rest, drink plenty of fluids. You need to avoid marijuana use. Follow-up with your doctor if you needassistance, return here as necessary Prescriptions: New ondansetron 4 mg tablet,disintegrating 4 mg PO Q4H PRN (Reason: nausea and vomiting) Qty: 20 RF: 0 sulfamethoxazole-trimethoprim 800-160 mg tablet 1 tab PO BID 7 Days Qty: 14 RF: 0 Referrals: Philipp Borrego MD [Primary Care Provider] -
[2021-04-23 12:30] LABS: COVID19 -Nasal RAPID Negative (Negative)
[2021-04-23] MEDS: PANTOPRAZOLE 40 MG VIAL IV (12:31)
[2021-04-23 12:40] LABS: Alanine Aminotransferase 17 IU/L (<35); Albumin 5.4 g/dL (3.5-5.0); Albumin Globulin Ratio 1.3 (1.0-2.8); Alkaline Phosphatase 74 U/L (38-126); Aspartate Aminotransferase 23 IU/L (14-36); BUN Creatinine Ratio 14.3 (6-22); Bilirubin Total 1.2 mg/dL (0.2-1.3); Blood Urea Nitrogen 16 mg/dL (7-17); Calcium 10.2 mg/dL (8.4-10.2); Carbon Dioxide 28 mmol/L (22-32); Chloride 96 mmol/L (98-107); Estimated Glomerular Filt Rate 56.7 mL/min (>60); Globulin 4.1 g/dL (1.7-4.1); Glucose 115 mg/dL (70-100); HEMOLYSIS < 15 (0-50); Lipase 37 U/L (23-300); Potassium 3.1 mmol/L (3.4-5.1); Sodium 137 mmol/L (137-145); Total Protein 9.5 g/dL (6.3-8.2)
[2021-04-23 14:14] LABS: Bacteria Urine Many (>30); RBC Urine 1-5/HPF (0-5/HPF); Squamous Epithelial Cell Urine 1+ (0-5/HPF); WBC Urine 30-100/HPF (0-5/HPF)
[2021-04-23 14:15] LABS: Culture Indicated Urine Specimen Cultured
[2021-04-23] MEDS: POTASSIUM CHLORIDE 20 MEQ TAB PO (14:56)
[2021-04-23] MEDS: cefTRIAXone 1,000 MG in SODIUM CHLORIDE 0.9% 100 ML 200 ML IV (15:48)
== END 2021-04-23 16:21 | disposition home or self-care (01) ==
PROVIDERS: Emergency Provider Emergency Medicine; PCP Family Medicine
DX: F12.188 Cannabis abuse with other cannabis-induced disorder (principal); N30.00 Acute cystitis without hematuria; R10.13 Epigastric pain; Z20.822 Contact with and (suspected) exposure to COVID-19
CPT/HCPCS: 80053; 81003; 81015; 83690; 85025; 87077; 87086; 87186; 87635; 96361; 96365; 96375; 99284; C9803; C9113; J0696; J1200; J2405; J2765

== ENCOUNTER 2021-04-26 18:23 | Emergency (ER) | payer OTHER, MEDICAID, SELFPAY ==
[2021-04-26 18:30] VITALS: PULSE 73; O2SAT 98
[2021-04-26 18:31] VITALS: BP 137/90; PULSE 69; RESP 16; TEMP 36.3; O2SAT 96; BMI 27.4
--- NOTE | 2021-04-26 18:36 | ED_ITS ---
HPI - Nausea/Vomiting/Diarrhea General Chief complaint: Nausea/Vomiting/Diarrhea Stated complaint: Nauseous, Migraine, Tingly Body, No Sleep Time Seen by Provider: 04/26/21 18:30 History of Present Illness HPI Narrative: 30-year-old female nonsmoker with prior history of hyperemesis and migraines presents with ongoing nausea, vomiting and diarrhea for the past few days. She has a poor appetite and feels weak, she has a vague headache. She denies any recent trauma or injury and has had no fever or chills. She denies any neck pain. She states her headache is been slow in onset and is generalized and its location. She denies any new medications, recent travel or exposure to bad food. She has not consumed any THC since . She is able to keep some liquids and food down. Additionally she feels tingly from head to toe, she denies numbness but just feels a bit tingly. She denies any leg cramps Related Data Previous Rx's Medication Instructions Recorded ondansetron 4 mg disintegrating 4 mg PO Q4H PRN #20 tab 04/23/21 tablet sulfamethoxazole 800 1 tab PO BID 7 Days #14 tab 04/23/21 mg-trimethoprim 160 mg tablet potassium chloride 20 mEq 20 meq PO BID #10 tab 04/26/21 tablet,extended release Allergies Allergy/AdvReac Type Severity Reaction Status Date / Time No Known Drug Allergies Allergy Verified 04/23/21 11:16 Review of Systems Review of Systems Narrative: GENERAL: See HPI HEENT: Denies sinus pain, ear pain, sore throat, difficulty swallowing, di zziness. RESPIRATORY: Denies dyspnea, cough, wheezing, hemoptysis, sputum. CARDIOVASCULAR: Denies chest pain, palpitations, orthopnea, edema, GASTROINTESTINAL: See HPI : Denies dysuria, frequency, incontinence, hematuria, urinary retention. MUSCULOSKELETAL: denies weakness, joint pain, or bony pain SKIN: Denies rash, skin lesions, or other NEUROLOGIC: See HPI PSYCHIATRIC: No concerning psychosocial issues. 12 point review of systems is negative except for those stated above Patient History Medical History (infant) Healthy adult Hyperemesis gravidarum Migraine headache Never smoked Sterilization consult Vaginal delivery (~11/06/18) Surgical History No pertinent past surgical history Social History household members: spouse Smoking Status: Never smoker Smoking Status: Never smoker Substance Use Type: marijuana Exam Narrative Exam Narrative: GENERAL: 30 year old patient appears stated age. Well-developed patient, in mild distress. GCS 15 HEAD: Atraumatic. Normocephalic. EYES: Pupils equal round and reactive. Extraocular motions intact. No scleral icterus. No injection or drainage. ENT: Nose without bleeding, purulent drainage. Throat without erythema, tonsillar hypertrophy or exudate. Airway patent. NECK: Trachea midline. Non tender CARDIOVASCULAR: Regular rate and rhythm without murmurs, gallops, or rubs. RESPIRATORY: Clear to auscultation. Breath sounds equal bilaterally. No wheezes, rales, or rhonchi. GASTROINTESTINAL: Abdomen soft, non-tender, nondistended. EXTREMITIES: No edema or joint tenderness. BACK: Nontender without deformity or crepitance. No flank tenderness. NEURO: AOx3. SKIN: No rash or erythema of visible areas NIH Stroke Scale 1a. LOC: Patient is alert and keenly responsive (0) 1b. LOC Questions: Patient answers both LOC questions accurately (0) 1c. LOC Commands: Patient performs both tasks correctly (0) 2. Best Gaze: Normal (0) 3. Visual: No visual loss (0) 4. Facial palsy: Normal symmetrical movements (0) 5. Motor arm: No drift (0) 6. Motor leg: No drift (0) 7. Limb ataxia: Absent (0) 8. Sensory: Normal (0) 9. Best language: No aphasia; normal (0) 10. Dysarthria: Normal (0) 11. Extinction and inattention: No abnormality (0) NIHSS: 0 Initial Vital Signs Initial Vital Signs: Vital Signs Pulse Rate 73 04/26/21 18:30 Pulse Oximetry 98 04/26/21 18:30 Course Orders Ordered: ED Orders 04/26/21 18:39 Complete Blood Count AUTO DIFF Stat Comprehensive Metabolic Panel Stat Discontinued Medications Sodium Chloride (Normal Saline 0.9%) 1,000 mls @ 1,000 mls/hr IV BOLUS ONE Stop: 04/26/21 19:33 Last Admin: 04/26/21 18:47 Dose: Not Given Documented by: MONTEZ Sodium Chloride (Normal Saline 0.9%) 1,000 mls @ 1,000 mls/hr IV BOLUS ONE Stop: 04/26/21 19:43 Last Infusion: 04/26/21 22:04 Dose: 0 mls/hr Documented by: Admin: 04/26/21 18:48 Dose: 1,000 mls/hr Documented by: MONTEZ POTASSIUM CHLORIDE IN WATER (Potassium Cl 10 Meq/100 Ml Maria Luisa) 10 meq in 100 mls @ 100 mls/hr IV Q1H ALIA Stop: 04/26/21 23:44 Last Admin: 04/26/21 22:02 Dose: Not Given Documented by: Infusion: 04/26/21 22:02 Dose: 0 mls/hr Documented by: Admin: 04/26/21 22:01 Dose: Not Given Documented by: Admin: 04/26/21 20:57 Dose: 100 mls/hr Documented by: Infusion: 04/26/21 20:41 Dose: 100 mls/hr Documented by: Admin: 04/26/21 19:41 Dose: 100 mls/hr Documented by: MONTEZ Ketorolac Tromethamine (Ketorolac 30 Mg/Ml Vial) 15 mg IV NOW ONE Stop: 04/26/21 20:22 Last Admin: 04/26/21 20:27 Dose: 15 mg Documented by: MONTEZ Ondansetron HCl (Ondansetron 4 Mg/2 Ml Inj) 4 mg IV NOW ONE Stop: 04/26/21 18:35 Last Admin: 04/26/21 18:47 Dose: Not Given Documented by: MONTEZ Ondansetron HCl (Ondansetron 4 Mg/2 Ml Inj) 4 mg IV NOW ONE Stop: 04/26/21 18:45 Last Admin: 04/26/21 18:48 Dose: 4 mg Documented by: MONTEZ Potassium Chloride (Potassium Chloride 20 Meq/15 Ml Udc) 40 meq PO NOW ONE Stop: 04/26/21 19:37 Last Admin: 04/26/21 21:01 Dose: Not Given Documented by: MONTEZ Potassium Chloride (Potassium Chloride 20 Meq Tab) 40 meq PO NOW ONE Stop: 04/26/21 21:39 Last Admin: 04/26/21 21:47 Dose: 40 meq Documented by: ASHLEY Reevaluation(s) Reevaluation #1: Patient feeling significant improvement after the above-stated therapies. Initially she had refused the liquid potassium replacement but was amenable to the pill form. She also received K rider. On discharge she was tolerating orals and walked out under own power. He is feeling much better, as stated Vital Signs Vital signs: Vital Signs - 8 hr 04/26/21 18:30 04/26/21 18:31 04/26/21 22:09 Temperature 97.4 F L Pulse Rate 73 69 61 Respiratory Rate 16 Blood Pressure 137/90 Pulse Oximetry 98 96 99 04/26/21 22:18 Temperature Pulse Rate Respiratory Rate Blood Pressure 137/85 Pulse Oximetry MDM - Nausea/Vomiting/Diarrhea Lab Data Result diagrams: 04/26/21 18:39 04/26/21 18:39 Labs: Lab Results 04/26/21 04/26/21 Range/Units 18:39 18:39 WBC 11.0 (4.5-11.0) X10^3/uL RBC 5.56 H (4.0-5.2) X10^6/uL Hgb 15.9 (12.0-16.0) g/dL Hct 45.7 (36-46) % MCV 82.2 (80-100) fL MCH 28.6 (26-34) PG MCHC 34.7 (30-36) % RDW 12.9 (11.6-14.8) % Plt Count 383 (150-400) X10^3/uL Neut % (Auto) 75.8 H (50-75) % Lymph % (Auto) 17.1 L (25-40) % [place] % (Auto) 5.3 (3-14) % Eos % (Auto) 0.4 L (2-4) % Baso % (Auto) 1.4 (0-2) % Neut # (Auto) 8300 H (1188-6447) /uL Lymph # (Auto) 1900 (5701-3823) /uL [place] # (Auto) 600 (0-900) /uL Eos # (Auto) 0 (0-450) /uL Baso # (Auto) 200 H (0-100) /uL Sodium 136 L (137-145) mmol/L Potassium 2.9 L (3.4-5.1) mmol/L Chloride 95 L (98-107) mmol/L Carbon Dioxide 29 (22-32) mmol/L BUN 11 (7-17) mg/dL Creatinine 1.22 H (0.52-1.04) mg/dL Estimated GFR 51.4 L (>60) mL/min BUN/Creatinine Ratio 9.0 (6-22) Glucose 117 H (70-100) mg/dL Calcium 9.9 (8.4-10.2) mg/dL Total Bilirubin 0.9 (0.2-1.3) mg/dL AST 25 (14-36) IU/L ALT 25 (<35) IU/L Alkaline Phosphatase 68 (38-126) U/L Total Protein 9.1 H (6.3-8.2) g/dL Albumin 5.1 H (3.5-5.0) g/dL Globulin 4.0 (1.7-4.1) g/dL Albumin/Globulin Ratio 1.3 (1.0-2.8) Discharge Plan Departure Patient Disposition: Home Clinical Impression: Acute vomiting, Acute hypokalemia Instructions: DI for Dehydration -- Adult, DI for Hypokalemia, DI for Vomiting -- Adult Activity Restrictions/Additional Instructions: *You have been diagnosed with [nausea, vomiting and low potassium *What to do: *Please continue to take your regular medications as directed. [ ] New medication prescriptions sent to your pharmacy: [ ] [x ] New medication written as a paper prescription [ ] No new medications given *Please follow up with your primary care provider in 2-3 days, call for an appointment. Let them know you were seen in the Emergency Department and that we ask that you be seen in follow up. We will electronically transmit a record of today's note if your PCP is in our system *If you do not have a primary care provider please contact the [facility] Resource line at [phone]. They will ask some questions about your medical history and help get you set up with a doctor in the community. *Return to Emergency Department if you should have any new, worsening or concerning symptoms, such as [fever greater than 101 F, shaking chills, worsening pain, persistent vomiting or other bothersome symptoms] Prescriptions: New potassium chloride 20 mEq tablet extended release 20 meq PO BID Qty: 10 RF: 0 No Action ondansetron 4 mg tablet,disintegrating 4 mg PO Q4H PRN (Reason: nausea and vomiting) Qty: 20 RF: 0 sulfamethoxazole-trimethoprim 800-160 mg tablet 1 tab PO BID 7 Days Qty: 14 RF: 0 Referrals: Philipp Borrego MD [Primary Care Provider] -
[2021-04-26 18:47] LABS: Add Manual Diff / Slide Review NO; Basophils Absolute Auto 200 /uL (0-100); Basophils Percent Auto 1.4 % (0-2); Eosinophils Absolute Auto 0 /uL (0-450); Eosinophils Percent Auto 0.4 % (2-4); Hematocrit 45.7 % (36-46); Hemoglobin 15.9 g/dL (12.0-16.0); Lymphocytes Absolute Auto 1900 /uL (1100-4500); Lymphocytes Percent Auto 17.1 % (25-40); Mean Corpuscular HGB Conc 34.7 % (30-36); Mean Corpuscular Hemoglobin 28.6 PG (26-34); Mean Corpuscular Volume 82.2 fL (80-100); Monocytes Absolute Auto 600 /uL (0-900); Monocytes Percent Auto 5.3 % (3-14); Neutrophils Absolute Auto 8300 /uL (1500-7000); Neutrophils Percent Auto 75.8 % (50-75); Platelet Count 383 X10^3/uL (150-400); Red Blood Cell Count 5.56 X10^6/uL (4.0-5.2); Red Cell Distribution Width 12.9 % (11.6-14.8)
[2021-04-26] MEDS: ONDANSETRON 4 MG/2 ML INJ IV (18:48)
[2021-04-26] MEDS: SODIUM CHLORIDE 0.9% 1,000 ML 1000 ML IV (18:48)
[2021-04-26 19:02] LABS: Alanine Aminotransferase 25 IU/L (<35); Albumin 5.1 g/dL (3.5-5.0); Albumin Globulin Ratio 1.3 (1.0-2.8); Alkaline Phosphatase 68 U/L (38-126); Aspartate Aminotransferase 25 IU/L (14-36); Bilirubin Total 0.9 mg/dL (0.2-1.3); Blood Urea Nitrogen 11 mg/dL (7-17); Calcium 9.9 mg/dL (8.4-10.2); Carbon Dioxide 29 mmol/L (22-32); Chloride 95 mmol/L (98-107); Estimated Glomerular Filt Rate 51.4 mL/min (>60); Glucose 117 mg/dL (70-100); HEMOLYSIS < 15 (0-50); Potassium 2.9 mmol/L (3.4-5.1); Sodium 136 mmol/L (137-145); Total Protein 9.1 g/dL (6.3-8.2)
[2021-04-26] MEDS: POTASSIUM CHLORIDE IN WATER 10 MEQ/100 ML PIGGYBACK 100 MEQ IV ×2 (19:41→20:57)
[2021-04-26] MEDS: KETOROLAC 30 MG/ML VIAL 15 MG IV (20:27)
[2021-04-26] MEDS: POTASSIUM CHLORIDE 20 MEQ TAB 40 MEQ PO (21:47)
[2021-04-26 22:09] VITALS: PULSE 61; O2SAT 99
[2021-04-26 22:18] VITALS: BP 137/85
== END 2021-04-26 22:23 | disposition home or self-care (01) ==
PROVIDERS: Emergency Provider Emergency Medicine; PCP Family Medicine
DX: R11.2 Nausea with vomiting, unspecified (principal); E87.6 Hypokalemia; R19.7 Diarrhea, unspecified
CPT/HCPCS: 36415; 80053; 85025; 96361; 96365; 96366; 96375; 99284; J1885; J2405

== ENCOUNTER → 2024-02-20 10:34 | Outpatient (CLI) | payer OTHER, MEDICAID, SELFPAY ==
[2024-02-20 11:58] LABS: Add Manual Diff / Slide Review NO; Basophils Absolute Auto 100 /uL (0-100); Basophils Percent Auto 0.7 % (0-2); Eosinophils Absolute Auto 200 /uL (0-450); Eosinophils Percent Auto 2.7 % (2-4); Hematocrit 40.5 % (36-46); Hemoglobin 13.8 g/dL (12.0-16.0); Lymphocytes Absolute Auto 2200 /uL (1100-4500); Lymphocytes Percent Auto 30.6 % (25-40); Mean Corpuscular HGB Conc 34.2 % (30-36); Mean Corpuscular Hemoglobin 29.2 PG (26-34); Mean Corpuscular Volume 85.4 fL (80-100); Monocytes Absolute Auto 400 /uL (0-900); Monocytes Percent Auto 5.9 % (3-14); Neutrophils Absolute Auto 4400 /uL (1500-7000); Neutrophils Percent Auto 60.1 % (50-75); Platelet Count 337 X10^3/uL (150-400); Red Blood Cell Count 4.74 X10^6/uL (4.0-5.2); Red Cell Distribution Width 13.1 % (11.6-14.8); White Blood Cell Count 7.3 X10^3/uL (4.5-11.0)
[2024-02-20 12:08] LABS: Hemoglobin A1C% w Est Avg Glu 5.4 % (4.0-6.0)
[2024-02-20 12:13] LABS: HEMOLYSIS < 15 (0-50)
[2024-02-20 12:14] LABS: HEMOLYSIS < 15 (0-50)
[2024-02-20 12:18] LABS: Iron 133 ug/dL (37-170)
[2024-02-20 12:22] LABS: Alanine Aminotransferase 20 IU/L (<35); Albumin 4.2 g/dL (3.5-5.0); Albumin Globulin Ratio 1.4 (1.0-2.8); Alkaline Phosphatase 74 U/L (38-126); Aspartate Aminotransferase 23 IU/L (14-36); BUN Creatinine Ratio 12.4 (6-22); Bilirubin Total 0.6 mg/dL (0.2-1.3); Blood Urea Nitrogen 14 mg/dL (7-17); Calcium 9.1 mg/dL (8.4-10.2); Carbon Dioxide 27 mmol/L (22-32); Chloride 106 mmol/L (98-107); Cholesterol 244 mg/dL (140-199); Estimated Glomerular Filt Rate > 60 mL/min (>60); Glucose 94 mg/dL (70-100); HDL Cholesterol 60 mg/dL (40-60); LDL Cholesterol Calculated 148 mg/dL (<100); Potassium 4.6 mmol/L (3.4-5.1); Sodium 138 mmol/L (137-145); Total Protein 7.2 g/dL (6.3-8.2); Triglycerides 181 mg/dL (35-150)
[2024-02-20 12:32] LABS: Percent Iron Saturation 49 % (15-50); Total Iron Binding Capacity 274 ug/dL (265-497); Transferrin 230 mg/dL (206-381)
[2024-02-20 12:55] LABS: TSH w/ Reflex to FT4 0.96 uIU/mL (0.47-4.68)
[2024-02-20 12:59] LABS: Ferritin 35 ng/mL (6-137)
[2024-02-20 13:13] LABS: Vitamin B12 337 pg/mL (239-931)
== END ==
PROVIDERS: PCP Family Medicine; Referring Provider Physician Assistant; Visit Provider Physician Assistant
DX: Z13.220 Encounter for screening for lipoid disorders (principal); Z13.6 Encounter for screening for cardiovascular disorders; R73.01 Impaired fasting glucose; Z82.49 Family history of ischemic heart disease and other diseases of the circulatory system; N92.0 Excessive and frequent menstruation with regular cycle; R53.83 Other fatigue
CPT/HCPCS: 36415; 80053; 80061; 82607; 82728; 83036; 83540; 83550; 84443; 85025

== ENCOUNTER → 2024-12-27 09:27 | Outpatient (CLI) | payer OTHER, SELFPAY ==
[2024-12-27 14:49] LABS: Urine N gonorrhoeae NOT DETECTED
[2024-12-27 14:50] LABS: Urine Chlamydia NOT DETECTED
== END ==
PROVIDERS: PCP Family Medicine; Visit Provider Family Medicine
DX: Z20.2 Contact with and (suspected) exposure to infections with a predominantly sexual mode of transmission (principal)
CPT/HCPCS: 87491; 87591